=== PATIENT | female | born 1975 | race Caucasian/White ===

== ENCOUNTER 2017-10-25 12:39 | Emergency (ER) | payer BC ==
[~2017-10-25] VITALS: Ht 162.6 cm; Wt 63.5 kg
[~2017-10-25 12:39] MED LIST: ACETAMINOPHEN325 M1; BACTRIM DS TAB1 EACH PO; BENTYL 10 MG CA10 M1; CIPRO500 MG PO; CLEOCIN HCL300 MG PO; FLAGYL500 MG PO; IBUPROFEN 800800 M1 PO; IBUPROFEN200 M2; KEFLEX500 MG PO; NOHOMEMEDICATIONS; NORCO 5-325 TA1 EACH PO; PERCOCET 5-3251 EACH PO; PHENERGAN 25 MG25 M1 PO; TRAMADOL 50 MG50 MG PO
[2017-10-25 13:03] LABS: URINE BILIRUBIN NEGATIVE (Negative); URINE BLOOD 3+ (Negative); URINE CLARITY CLEAR; URINE COLOR YELLOW; URINE GLUCOSE-RANDOM NEGATIVE (Negative); URINE KETONES 1+ (Negative); URINE LEUKOCYTES-REFLEX NEGATIVE (Negative); URINE NITRITE-REFLEX NEGATIVE (Negative); URINE PROTEIN 1+ (Negative); URINE UROBILINOGEN 0.2 E.U./dl (0.2-1.0)
[2017-10-25 13:09] LABS: HEMATOCRIT 39.3 % (37.0-47.0); HEMOGLOBIN 13.7 gm/dL (12.0-15.0); MCH 34.8 pg (26.0-34.0); MCHC 34.8 g/dL (28.0-37.0); MCV 100.1 fL (80.0-100.0); MPV 7.7 fl. (7.2-11.1); NUCLEATED RBCS 0 /100WBC; PLATELET COUNT* 312 thou/uL (150-400); RBC 3.93 mil/uL (4.20-5.00); RDW-CV 12.9 % (10.5-14.5); WBC 16.2 thou/uL (4.0-11.0)
[2017-10-25 13:14] LABS: CREATININE 0.8 mg/dL (0.6-1.3); POTASSIUM 3.7 mmol/L (3.5-5.1)
[2017-10-25 13:18] LABS: ALBUMIN 3.7 g/dL (3.4-5.0); TOTAL BILIRUBIN 0.4 mg/dL (<0.1-1.0)
[2017-10-25 13:21] LABS: SQUAMOUS >10 Many /LPF (0-3)
[2017-10-25 13:22] LABS: URINE WBC-REFLEX None Seen /HPF (0-5)
[2017-10-25 13:23] LABS: CASTS None Seen /LPF (None Seen); CRYSTALS None Seen /LPF (None Seen)
[2017-10-25 13:49] LABS: ABSOLUTE BASOPHILS 0.2 thou/uL (0.0-0.2); ABSOLUTE EOSINOPHILS 0.2 thou/uL (0.0-0.7); ABSOLUTE LYMPHOCYTES 2.4 thou/uL (0.8-5.3); ABSOLUTE MONOCYTES 0.8 thou/uL (0.0-1.2); ABSOLUTE NEUTROPHILS 12.6 thou/uL (1.6-8.1); ATYPICAL LYMPHS 1 %; PLATELET ESTIMATE ADEQUATE
[2017-10-25] MEDS ORDERED: KEFLEX500 M1 PO (14:55)
[2017-10-25] MEDS ORDERED: IBUPROFEN 600600 M1 PO (14:55)
[2017-10-25] MEDS ORDERED: ULTRAM 50MG TAB50 MG PO (14:55)
[2017-10-25 15:16] VITALS: BP 120/82
[2017-10-26] MEDS ORDERED: PERCOCET 5-3251 EACH PO (01:57)
[2017-10-26] MEDS ORDERED: PHENERGAN12.5 M2 RECTAL (01:57)
== END 2017-10-25 15:17 | disposition home or self-care (01) ==
LOC: M.ERS 12:39
PROVIDERS: Physician Assistant
DX: N39.0 Urinary tract infection, site not specified (principal); Z88.1 Allergy status to other antibiotic agents; Z88.5 Allergy status to narcotic agent

== ENCOUNTER 2017-10-25 21:48 | Emergency (ER) | payer BC ==
[~2017-10-25] VITALS: Ht 162.6 cm; Wt 62.1 kg
[~2017-10-25 21:48] MED LIST changes: +IBUPROFEN 600600 M1 PO; +KEFLEX500 M1 PO; +ULTRAM 50MG TAB50 MG PO
[2017-10-25 22:57] LABS: ABSOLUTE EOSINOPHILS 0.1 thou/uL (0.0-0.7); ABSOLUTE LYMPHOCYTES 1.5 thou/uL (0.8-5.3); ABSOLUTE NEUTROPHILS 11.5 thou/uL (1.6-8.1); BASOPHILS 0.3 %; EOSINOPHILS 0.4 %; HEMATOCRIT 36.4 % (37.0-47.0); LYMPHOCYTES 10.6 %; MCH 35.2 pg (26.0-34.0); MCHC 35.6 g/dL (28.0-37.0); MCV 98.9 fL (80.0-100.0); MONOCYTES 6.9 %; MPV 7.9 fl. (7.2-11.1); NUCLEATED RBCS 0 /100WBC; PLATELET COUNT* 264 thou/uL (150-400); POLYS 81.8 %; RBC 3.68 mil/uL (4.20-5.00); RDW-CV 12.9 % (10.5-14.5)
[2017-10-25 23:05] LABS: CALCIUM 8.6 mg/dL (8.5-10.1); CREATININE 0.8 mg/dL (0.6-1.3); POTASSIUM 3.6 mmol/L (3.5-5.1)
[2017-10-25 23:10] LABS: ALBUMIN 3.4 g/dL (3.4-5.0); TOTAL BILIRUBIN 0.6 mg/dL (<0.1-1.0); TOTAL PROTEIN 6.7 g/dL (6.4-8.2)
[2017-10-26] MEDS ORDERED: PHENERGAN12.5 M2 RECTAL (01:57)
[2017-10-26] MEDS ORDERED: PERCOCET 5-3251 EACH PO (01:57)
[2017-10-26 02:21] VITALS: BP 129/94
== END 2017-10-26 02:31 | disposition home or self-care (01) ==
LOC: M.ERS 21:48
PROVIDERS: Personal Emergency Response Attendant
DX: R10.32 Left lower quadrant pain (principal); R11.2 Nausea with vomiting, unspecified; Z88.6 Allergy status to analgesic agent; Z88.5 Allergy status to narcotic agent; Z88.8 Allergy status to other drugs, medicaments and biological substances

== ENCOUNTER 2018-02-01 10:45 | Emergency (ER) | payer OTHER ==
[~2018-02-01] VITALS: Ht 162.6 cm; Wt 68.0 kg
[~2018-02-01 10:45] MED LIST changes: +PHENERGAN12.5 M2 RECTAL
[2018-02-01] MEDS ORDERED: AUGMENTIN 875-1 EACH PO (11:03)
[2018-02-01 12:08] VITALS: BP 147/85
== END 2018-02-01 12:10 | disposition home or self-care (01) ==
LOC: M.ERS 10:45
DX: S71.111A Laceration without foreign body, right thigh, initial encounter (principal); Z88.1 Allergy status to other antibiotic agents; Z88.5 Allergy status to narcotic agent; W54.0XXA Bitten by dog, initial encounter; Y93.89 Activity, other specified; Y92.89 Other specified places as the place of occurrence of the external cause; Y99.8 Other external cause status

== ENCOUNTER 2018-02-14 16:13 | Inpatient (IN) | payer OTHER ==
[~2018-02-14] VITALS: Ht 162.6 cm; Wt 68.4 kg
[~2018-02-14 16:13] MED LIST changes: +AUGMENTIN 875-1 EACH PO
[2018-02-14 16:19] VITALS: BP 133/84
[2018-02-14 16:52] LABS: HEMATOCRIT 40.4 % (37.0-47.0); MCHC 34.8 g/dL (28.0-37.0); MCV 100.6 fL (80.0-100.0); MPV 7.8 fl. (7.2-11.1); NUCLEATED RBCS 0 /100WBC; PLATELET COUNT* 242 thou/uL (150-400); RBC 4.01 mil/uL (4.20-5.00); RDW-CV 13.8 % (10.5-14.5)
[2018-02-14 16:56] LABS: CALCIUM 8.8 mg/dL (8.5-10.1); CREATININE 0.9 mg/dL (0.6-1.3); POTASSIUM 3.9 mmol/L (3.5-5.1)
[2018-02-14 17:10] LABS: ALBUMIN 3.5 g/dL (3.4-5.0); TOTAL BILIRUBIN 0.2 mg/dL (<0.1-1.0); TOTAL PROTEIN 6.7 g/dL (6.4-8.2)
[2018-02-14 17:35] LABS: ABSOLUTE LYMPHOCYTES 3.2 thou/uL (0.8-5.3); ABSOLUTE MONOCYTES 0.9 thou/uL (0.0-1.2); PLATELET ESTIMATE ADEQUATE
[2018-02-14 22:00] VITALS: BP 110/77
[2018-02-15 04:00] VITALS: BP 107/74
[2018-02-15 04:46] LABS: ABSOLUTE EOSINOPHILS 0.2 thou/uL (0.0-0.7); ABSOLUTE LYMPHOCYTES 2.3 thou/uL (0.8-5.3); ABSOLUTE MONOCYTES 0.7 thou/uL (0.0-1.2); ABSOLUTE NEUTROPHILS 5.3 thou/uL (1.6-8.1); BASOPHILS 0.5 %; EOSINOPHILS 2.6 %; HEMATOCRIT 41.2 % (37.0-47.0); HEMOGLOBIN 14.1 gm/dL (12.0-15.0); MCH 34.6 pg (26.0-34.0); MCHC 34.2 g/dL (28.0-37.0); MCV 101.2 fL (80.0-100.0); MONOCYTES 7.6 %; MPV 8.1 fl. (7.2-11.1); NUCLEATED RBCS 0 /100WBC; PLATELET COUNT* 225 thou/uL (150-400); POLYS 62.3 %; RBC 4.07 mil/uL (4.20-5.00); RDW-CV 13.4 % (10.5-14.5); WBC 8.6 thou/uL (4.0-11.0)
[2018-02-15 08:00] VITALS: BP 100/63
[2018-02-15 16:09] VITALS: BP 111/63
[2018-02-15 21:45] VITALS: BP 111/70
[2018-02-16 04:06] LABS: ABSOLUTE BASOPHILS 0.1 thou/uL (0.0-0.2); ABSOLUTE EOSINOPHILS 0.2 thou/uL (0.0-0.7); ABSOLUTE LYMPHOCYTES 2.3 thou/uL (0.8-5.3); ABSOLUTE MONOCYTES 0.6 thou/uL (0.0-1.2); ABSOLUTE NEUTROPHILS 4.5 thou/uL (1.6-8.1); EOSINOPHILS 2.3 %; HEMOGLOBIN 14.4 gm/dL (12.0-15.0); LYMPHOCYTES 30.4 %; MCHC 34.3 g/dL (28.0-37.0); MCV 102.2 fL (80.0-100.0); MONOCYTES 7.3 %; MPV 8.2 fl. (7.2-11.1); NUCLEATED RBCS 0 /100WBC; PLATELET COUNT* 223 thou/uL (150-400); RBC 4.11 mil/uL (4.20-5.00); RDW-CV 13.3 % (10.5-14.5); WBC 7.7 thou/uL (4.0-11.0)
[2018-02-16 08:30] VITALS: BP 103/46
[2018-02-16 09:34] VITALS: BP 103/46
[2018-02-16 09:42] VITALS: BP 103/46
[2018-02-16] MEDS ORDERED: AUGMENTIN 500-1 EACH PO (10:02)
[2018-02-16] MEDS ORDERED: VENELEX OINTMEN60 GM TOP (10:08)
[2018-02-16 11:00] VITALS: BP 103/46
== END 2018-02-16 11:30 | disposition home or self-care (01) | DRG 301 ==
LOC: M.ERS 16:13 → M.TBA-ER 20:52 → M.ORTHSURG 20:52 → M.2W 22:12 → M.ORTHSURG 02-15 12:43
PROVIDERS: Physician Assistant Surgical; ADMIT Surgery
DX: I96 Gangrene, not elsewhere classified (principal); G89.29 Other chronic pain; F17.210 Nicotine dependence, cigarettes, uncomplicated; Z90.49 Acquired absence of other specified parts of digestive tract; Z88.6 Allergy status to analgesic agent; Z79.2 Long term (current) use of antibiotics

== ENCOUNTER 2018-05-26 10:59 | Emergency (ER) | payer OTHER ==
[~2018-05-26] VITALS: Ht 162.6 cm; Wt 62.1 kg
[~2018-05-26 10:59] MED LIST changes: +AUGMENTIN 500-1 EACH PO; +VENELEX OINTMEN60 GM TOP
[2018-05-26] MEDS ORDERED: NEURONTIN600 MG PO (11:15)
[2018-05-26 11:20] LABS: URINE BILIRUBIN NEGATIVE (Negative); URINE BLOOD 3+ (Negative); URINE CLARITY CLEAR; URINE COLOR YELLOW; URINE GLUCOSE-RANDOM NEGATIVE (Negative); URINE KETONES 1+ (Negative); URINE LEUKOCYTES-REFLEX TRACE (Negative); URINE NITRITE-REFLEX NEGATIVE (Negative); URINE PROTEIN TRACE (Negative); URINE UROBILINOGEN 0.2 E.U./dl (0.2-1.0)
[2018-05-26 11:35] LABS: BACTERIA-REFLEX 1-9 Few /HPF (None Seen); CASTS None Seen /LPF (None Seen); CRYSTALS None Seen /LPF (None Seen); MUCUS 0-3 Light strn/LPF (None Seen); SQUAMOUS 4-10 Moderate /LPF (0-3); URINE WBC-REFLEX 6-15 Few /HPF (0-5)
[2018-05-26 11:43] LABS: CALCIUM 8.7 mg/dL (8.5-10.1); CREATININE 0.9 mg/dL (0.6-1.3); POTASSIUM 3.6 mmol/L (3.5-5.1)
[2018-05-26 11:48] LABS: ALBUMIN 3.8 g/dL (3.4-5.0); TOTAL BILIRUBIN 0.3 mg/dL (<0.1-1.0); TOTAL PROTEIN 6.8 g/dL (6.4-8.2)
[2018-05-26 11:51] LABS: ABSOLUTE EOSINOPHILS 0.1 thou/uL (0.0-0.7); ABSOLUTE LYMPHOCYTES 1.6 thou/uL (0.8-5.3); EOSINOPHILS 0.4 %; HEMOGLOBIN 13.9 gm/dL (12.0-15.0); MPV 7.8 fl. (7.2-11.1); NUCLEATED RBCS 0 /100WBC
[2018-05-26 11:53] LABS: ABSOLUTE BASOPHILS 0.1 thou/uL (0.0-0.2); ABSOLUTE MONOCYTES 0.8 thou/uL (0.0-1.2); ABSOLUTE NEUTROPHILS 12.3 thou/uL (1.6-8.1); BASOPHILS 0.5 %; LYMPHOCYTES 10.7 %; MCH 34.7 pg (26.0-34.0); MCHC 33.8 g/dL (28.0-37.0); MCV 102.5 fL (80.0-100.0); MONOCYTES 5.2 %; PLATELET COUNT* 219 thou/uL (150-400); POLYS 83.2 %; RDW-CV 13.2 % (10.5-14.5); WBC 14.8 thou/uL (4.0-11.0)
[2018-05-26] MEDS ORDERED: PHENAZOPYRIDIN200 M2 PO (12:25)
[2018-05-26] MEDS ORDERED: PHENERGAN 25 MG25 M1 PO (12:25)
[2018-05-26] MEDS ORDERED: BACTRIM DS TAB1 EACH PO (12:25)
[2018-05-26 12:59] VITALS: BP 117/85
== END 2018-05-26 13:00 | disposition home or self-care (01) ==
LOC: M.ERS 10:59
PROVIDERS: Emergency Medicine Emergency Medical Services
DX: N12 Tubulo-interstitial nephritis, not specified as acute or chronic (principal); Z88.6 Allergy status to analgesic agent; Z88.5 Allergy status to narcotic agent; Z88.8 Allergy status to other drugs, medicaments and biological substances; Z90.49 Acquired absence of other specified parts of digestive tract

== ENCOUNTER 2018-05-27 21:17 | Emergency (ER) | payer OTHER ==
[~2018-05-27] VITALS: Ht 162.6 cm; Wt 68.0 kg
[~2018-05-27 21:17] MED LIST changes: +NEURONTIN600 MG PO; +PHENAZOPYRIDIN200 M2 PO
[2018-05-27 22:04] LABS: URINE CLARITY CLEAR; URINE COLOR ORANGE
[2018-05-27 22:12] LABS: HEMATOCRIT 38.8 % (37.0-47.0); HEMOGLOBIN 13.3 gm/dL (12.0-15.0); MCH 34.2 pg (26.0-34.0); MCHC 34.2 g/dL (28.0-37.0); MCV 100.1 fL (80.0-100.0); MPV 7.7 fl. (7.2-11.1); NUCLEATED RBCS 0 /100WBC; PLATELET COUNT* 178 thou/uL (150-400); RBC 3.88 mil/uL (4.20-5.00); WBC 16.7 thou/uL (4.0-11.0)
[2018-05-27 22:20] LABS: CALCIUM 8.6 mg/dL (8.5-10.1); CREATININE 0.8 mg/dL (0.6-1.3); POTASSIUM 3.1 mmol/L (3.5-5.1)
[2018-05-27 22:25] LABS: ALBUMIN 3.2 g/dL (3.4-5.0); TOTAL BILIRUBIN 0.5 mg/dL (<0.1-1.0); TOTAL PROTEIN 6.5 g/dL (6.4-8.2)
[2018-05-27 22:33] LABS: URINE SPECIFIC GRAVITY 1.003 (1.005-1.030)
[2018-05-27 22:34] LABS: ACETEST (KETONE CONFIRMATORY) Moderate (Negative); ICTOTEST (BILI CONFIRMATORY) Negative (Negative); SSA (PROTEIN CONFIRMATORY) NEGATIVE (Negative); URINE GLUCOSE-RANDOM TRACE (Negative); URINE KETONES 2+ (Negative); URINE REDUCING SUBSTANCE NEGATIVE (Negative)
[2018-05-27 22:48] LABS: CASTS None Seen /LPF (None Seen); SQUAMOUS 0-3 Few /LPF (0-3)
[2018-05-27 22:49] LABS: BACTERIA 1-9 Few /HPF (None Seen); CRYSTALS None Seen /LPF (None Seen); URINE RBC 3-10 Few /HPF (0-2); URINE WBC 0-5 Rare /HPF (0-5)
[2018-05-27 23:58] LABS: ABSOLUTE LYMPHOCYTES 0.8 thou/uL (0.8-5.3); ABSOLUTE MONOCYTES 1.3 thou/uL (0.0-1.2); ABSOLUTE NEUTROPHILS 14.5 thou/uL (1.6-8.1)
[2018-05-27 23:59] LABS: PLATELET ESTIMATE ADEQUATE
[2018-05-28 00:20] VITALS: BP 113/71
== END 2018-05-28 00:21 | disposition home or self-care (01) ==
LOC: M.ERS 21:17
PROVIDERS: Nurse Practitioner Family
DX: N12 Tubulo-interstitial nephritis, not specified as acute or chronic (principal); F17.210 Nicotine dependence, cigarettes, uncomplicated; Z88.6 Allergy status to analgesic agent; Z88.5 Allergy status to narcotic agent; Z90.49 Acquired absence of other specified parts of digestive tract

== ENCOUNTER 2018-05-29 00:22 | Inpatient (IN) | payer OTHER ==
[~2018-05-29] VITALS: Ht 162.6 cm; Wt 68.9 kg
[2018-05-29 00:29] VITALS: BP 146/89
[2018-05-29 00:45] LABS: ABSOLUTE BASOPHILS 0.1 thou/uL (0.0-0.2); ABSOLUTE EOSINOPHILS 0.1 thou/uL (0.0-0.7); ABSOLUTE LYMPHOCYTES 1.1 thou/uL (0.8-5.3); ABSOLUTE MONOCYTES 1.1 thou/uL (0.0-1.2); ABSOLUTE NEUTROPHILS 13.8 thou/uL (1.6-8.1); BASOPHILS 0.4 %; EOSINOPHILS 0.7 %; HEMATOCRIT 39.5 % (37.0-47.0); HEMOGLOBIN 13.6 gm/dL (12.0-15.0); LYMPHOCYTES 6.6 %; MCH 34.2 pg (26.0-34.0); MCHC 34.4 g/dL (28.0-37.0); MCV 99.2 fL (80.0-100.0); MONOCYTES 6.5 %; MPV 7.8 fl. (7.2-11.1); NUCLEATED RBCS 0 /100WBC; PLATELET COUNT* 163 thou/uL (150-400); POLYS 85.8 %; RBC 3.98 mil/uL (4.20-5.00); RDW-CV 13.3 % (10.5-14.5); WBC 16.1 thou/uL (4.0-11.0)
[2018-05-29 00:52] LABS: CALCIUM 9.1 mg/dL (8.5-10.1); POTASSIUM 3.4 mmol/L (3.5-5.1)
[2018-05-29 00:57] LABS: TOTAL BILIRUBIN 0.5 mg/dL (<0.1-1.0); TOTAL PROTEIN 7.1 g/dL (6.4-8.2)
[2018-05-29 01:07] LABS: URINE CLARITY CLEAR; URINE COLOR AMBER
[2018-05-29 01:11] LABS: URINE SPECIFIC GRAVITY < 1.005 (1.005-1.030)
[2018-05-29 01:13] LABS: SSA (PROTEIN CONFIRMATORY) NEGATIVE (Negative); URINE GLUCOSE-RANDOM ND (Negative); URINE KETONES ND (Negative); URINE PROTEIN ND (Negative); URINE REDUCING SUBSTANCE NEGATIVE (Negative)
[2018-05-29 01:14] LABS: AMP/METHAMP Negative (Negative); BARBITURATES Negative (Negative); BENZODIAZEPINES Negative (Negative); COCAINE Negative (Negative); METHADONE Negative (Negative); OPIATES Negative (Negative); PCP Negative (Negative); THC POSITIVE (Negative)
[2018-05-29 01:15] LABS: ACETEST (KETONE CONFIRMATORY) Moderate (Negative); ICTOTEST (BILI CONFIRMATORY) Negative (Negative); URINE BILIRUBIN ND (Negative); URINE BLOOD ND (Negative); URINE LEUKOCYTES-REFLEX ND (Negative); URINE NITRITE-REFLEX ND (Negative); URINE UROBILINOGEN ND E.U./dl (0.2-1.0)
[2018-05-29 01:20] LABS: BACTERIA-REFLEX >30 Many /HPF (None Seen); CASTS None Seen /LPF (None Seen); CRYSTALS None Seen /LPF (None Seen); MUCUS 4-6 Moderate strn/LPF (None Seen); SQUAMOUS 4-10 Moderate /LPF (0-3); WBC CLUMPS Few (None Seen)
[2018-05-29 02:45] VITALS: BP 147/93
[2018-05-29 03:01] VITALS: BP 150/98
[2018-05-29 03:38] LABS: APTT 35.6 Seconds (25.0-31.3); PROTIME 10.6 Seconds (9.20-11.50)
--- NOTE | 2018-05-29 04:17 | NUR ---
42 Y/O FEMALE ADMITTED TO TELEMETRY WITH AN ADMITTING DX OF BACTREMIA, UTI, AND HYPONATREMIA. PT INITIALLY HAD A FWEVER OF 100.8 ORALLY WHEN ARRIVING TO FLOOR. PT GIVEN TYLENOL FOR FEVER ANF FENTANYL FOR PAIN WITH PARTIAL RELIEF. PT IS ON A CLD. PT REPORTS THAT SHE HAS HAD LOOSE STOOLS OVER THE PAST 2 DAYS AND HAS NOT EATEN MUCH EITHER. PT REPORTS THAT SHE HAS HAD THESE SYMPTOMS X 3 DAYS AND HAS MADE MULTIPLE ER VISITS BUT WAS UNABLE TO FIND TRANSPORTATION TO OBTAIN HER ABT. PT IS TRACING ST ON THE MONITOR. PT IS UP INDEPENDENT WITH STEADY GAOT TO BATHROOM. IVF AND IV ABT INFUSING ORDERED. PLEASE SEE ASSESSMENT FOR FURTHER DETAIL. CLWR
--- NOTE | 2018-05-29 06:10 | NUR ---
PT IS NOW RESTING COMFORTABLY AND REPORTS THAT PAIN IS CONTROLLED AND TOLERABLE AT THIS TIME. ELECTROLYTES REPLACED PER PROTOCOL. CLWR. PT DENIES ANY FURTHER NEEDS AT THIS TIME
[2018-05-29 11:04] VITALS: BP 132/83
--- NOTE | 2018-05-29 12:58 | NUR ---
ASSUMED PT CARE AT 0700 PT IS ALERT AND ORIENTED X 4 PT C/O PAIN MOANING GAVE PAIN MEDS REASSESSED PT WHO STILL HAVING PAIN TALKED WITH PHYSICIAN SINCE PT HAVING DIFFICULTY UNDERSTANDING PAIN MEDICATION DOSING AND FREQUENCY REEDUCATED PT ON THESE MULTIPLE INSTANCES PHYSICIAN SPOKE WITH PT ORDERED ANTIINFLAMATORY WITH PAIN MEDS PT NAUSEA GAVE REGLAN WITH PAIN MEDS THIS AM PT VOMITIED NOTIFIED PHYSICIAN WHO ORDERED ZOFRAN WHICH THIS NURSE GAVE WITH ANOTHER DOSE OF FENATNYL AROUND 1100 PT STATES BOTH MEDS HAVE HELPED PT ON CLEARS IF PT TOLERATED WILL ADVANCE DIET, PT IS UP WITH SBA PT IS RECEIVING NARCOTICS PT IS NOT A FALL RISK BED ALARM IS ON D/T PAIN MEDS, PT IS ST ON THE MONITOR, WILL CONTINUE TO MONITOR
--- NOTE | 2018-05-29 15:19 | NUR ---
SPOKE WITH PT. SHE WAS ALERT AND ORIENTED. SHE SAID SHE CAME TO ER AND GOT CALLED BACK WITH POSITIVE BLOOD CX. 2ND SET OF CX PENDING. SHE LIVES ALONE. HER CHILDREN ARE SUPPORTIVE WELL HER MOM. SHE IS NORMALLY INDEPENDENT. NO USE OF DME OR HX OF HH. THIS SUMMER SHE GOT BIT BY A DOG. SHE WAS FIRED DUE TO NOT BEING ABLE TO COME BACK TO WORK SOON ENOUGH. GAVE HER A PACKET FOR THE UNINSURED ALONG WITH A DRUG DISCOUNT CARD. SHE SAID SHE HAS A JOB AT [employer] BUT NO INSURANCE. CM WILL FOLLOW.
[2018-05-29 16:00] VITALS: BP 132/82
[2018-05-29 20:00] VITALS: BP 141/78
[2018-05-30] VITALS: BP 148/86
--- NOTE | 2018-05-30 02:09 | NUR ---
PT CARE ASSUMED AT 1930. SAT MAINATINED IN RA. ALERT AND ORINETED X4. CALL LIGHT WITHIN REACH AND FALL PRECAUTIONS MAINATINED. SR TO ST RUNNING IN TELE MONITOR. CALLS FREQUENTLY FOR PAIN MEDICATION. PT EDUCATED ABOUT PAIN MEDICATION DOSING AND FREQUENCY. CONTACT PRECAUTIONS MAINTAINED FOR ESBL. DENIES BURNING MICTURATION. WILL CONTINUE TO MONITOR.
[2018-05-30 04:00] VITALS: BP 131/85
--- NOTE | 2018-05-30 06:15 | NUR ---
PT ALERT AND ORIENTED. SAT MAINTAINED IN RA. PT HAVE DIFFICULTY UNDERSTANDING THE PAIN MEDICATION DOSING AND FREQUENCY. REDUCATED ABOUT THE PAIN MEDICATIONS. PT HAS NAUSEA, MEDICATION [employer] SERVICE REPRESENTATIVE PER EMAR. PT IS UP ADLIB. SR TO ST IN THE GRINDER SETUP OPERATOR. WILL CONTINUE TO MONITOR.
--- NOTE | 2018-05-30 07:30 | NUR ---
CHANGE OF SHIFT BEDSIDE REPORT GIVEN PATIENT SEEN AT BEDSIDE, IN BED RESTING ASSUMED PATIENT CARE
[2018-05-30 08:00] VITALS: BP 124/85
--- NOTE | 2018-05-30 08:23 | CON ---
[address] [address] CONSULTATION Name: ARIELLE RAMÍREZ Room: [address] IN .R.#: [id number] Admission: 05/29/18 Attend Phys: Migel Villasenor MD Discharge: Date of : 75 Report #: [id number] THIS REPORT FOR: //name// CC: FAM physician/PCP Migel Villasenor DATE OF SERVICE: 05/29/2018 INFECTIOUS DISEASE CONSULTATION ATTENDING PHYSICIAN: Migel Villasenor MD REASON FOR EVALUATION: Septicemia in a setting of pyelonephritis. HISTORY OF PRESENT ILLNESS: Chart reviewed, the patient examined. This is a 42-year-old without significant medical history who had onset of illness roughly 3 days prior to admission. She is seen in the ER twice, felt to have a likely complicated urinary tract infection. She was prescribed antibiotics including Bactrim as well as some Pyridium, Phenergan; however, blood culture was collected on the previous visit and was found to have a gram-negative urmila as well as a urine culture due to concerns about higher level of illness with septicemia. She was admitted at this point, she complains of significant right-sided pain. She generally feels poorly, has had some low-grade temperature elevations recorded as high as 100.8 with some tachycardia. She has not been significantly hemodynamically unstable. She was empirically placed on piperacillin and tazobactam. Imaging showed evidence of bilateral nephrolithiasis without hydronephrosis. She denies significant pulmonary-related complaints. Her appetite has been somewhat diminished. She is encephalopathic. ALLERGIES: MORPHINE, HYDROCODONE, ACETAMINOPHEN, ONDANSETRON. CURRENT MEDICATIONS: Include levofloxacin, p.r.n. analgesics, antiemetics, Zosyn. PAST MEDICAL HISTORY: Previous tubal ligation. She has had some completed pregnancies, previous cholecystectomy. SOCIAL HISTORY: Smokes a half a pack a day for the last 20 years, fairly frequent ethanol. FAMILY HISTORY: Noncontributory. REVIEW OF SYSTEMS: As above. PHYSICAL EXAMINATION: [place] [address] CONSULTATION Name: ARIELLE RAMÍREZ Room: [address] IN [facility].#: [id number] Admission: 05/29/18 Attend Phys: Migel Villasenor MD Discharge: Date of : 75 Report #: [id number] GENERAL: She appears ill, not overtly toxic. She is appropriate, in moderate distress. VITAL SIGNS: Temperature 98.9, pulse 69, respirations 17, blood pressure 132/83. SKIN: Warm, dry, no rashes. HEENT: Unremarkable. NECK: Supple. LUNGS: Otherwise clear, although somewhat diminished. HEART: Regular. I do not appreciate any murmur. ABDOMEN: Soft, some mild tenderness in the right lower quadrant, only minimal CVA tenderness. GENITOURINARY AND RECTAL: Deferred. LABORATORY DATA: She has had CT abdomen and pelvis as noted above, some stranding around the right renal site, perinephric inflammatory changes, bilateral nephrolithiasis. Lactic acid of 0.5. Chest x-ray, no acute process. Urine culture, gram-negative urmila. Electrolytes: Sodium 128, potassium 3.4, chloride 97, bicarb is 17, BUN and creatinine 9 and 1.0, anion gap of 14, glucose of 124. LFTs unremarkable. Albumin of 3, total protein 7.1, estimated GFR of 61. CBC: White count of 16.1, H and H 13.6 and 39.5, platelets 163. Blood cultures 1 out of 2 from the 30th, gram-negative rods. Urinalysis did show 6-15 white cells, 1-9 bacteria. ASSESSMENT AND PLAN: Septicemia as a complication of pyelonephritis. We will continue empiric antimicrobial therapy. We have early indications it is gram-negative, which is specifically what one would expect. There is no evidence of obstructive issue at this point based on imaging. We will likely be able to transition to oral antibiotics within the next 3-4 days and see how she does clinically. She is quite symptomatic at this point. We will have to monitor her oral intake. We will add incentive spirometry to help manage decrease in nosocomial-related infectious complications such as pneumonitis. <ELECTRONICALLY SIGNED> By: Dayton Nguyen MD 05/30/18 0823 [id number] Nguyen MD /nt
[2018-05-30 11:39] LABS: ABSOLUTE EOSINOPHILS 0.1 thou/uL (0.0-0.7); ABSOLUTE MONOCYTES 0.8 thou/uL (0.0-1.2); ABSOLUTE NEUTROPHILS 7.1 thou/uL (1.6-8.1); BASOPHILS 0.3 %; EOSINOPHILS 0.9 %; MCH 34.8 pg (26.0-34.0); MCHC 34.1 g/dL (28.0-37.0); MCV 101.9 fL (80.0-100.0); MONOCYTES 9.1 %; MPV 7.9 fl. (7.2-11.1); NUCLEATED RBCS 0 /100WBC; PLATELET COUNT* 160 thou/uL (150-400); POLYS 78.7 %; RBC 3.34 mil/uL (4.20-5.00); RDW-CV 13.1 % (10.5-14.5)
[2018-05-30 11:42] LABS: HEMOGLOBIN 11.6 gm/dL (12.0-15.0)
[2018-05-30 11:44] VITALS: BP 107/64
[2018-05-30 16:30] VITALS: BP 131/84
[2018-05-30 20:00] VITALS: BP 150/95
[2018-05-31] VITALS: BP 122/77
[2018-05-31 04:00] VITALS: BP 122/87
--- NOTE | 2018-05-31 04:05 | NUR ---
PT CARE ASSUMED AT 1930. SAT MAINTAINED IN RA. ALERT AND ORIENTED X 4. UP ADLIB. STATED PAIN, MEDICATION GIVEN PER EMAR. CALL LIGHT WITHIN REACH AND FALL PRECAUTIONS MAINTAINED. WILL CONTINUE TO MONITOR.
[2018-05-31 05:35] LABS: URINE BILIRUBIN NEGATIVE (Negative); URINE BLOOD 3+ (Negative); URINE CLARITY CLEAR; URINE COLOR YELLOW; URINE GLUCOSE-RANDOM NEGATIVE (Negative); URINE KETONES NEGATIVE (Negative); URINE LEUKOCYTES 1+ (Negative); URINE NITRITE NEGATIVE (Negative); URINE PROTEIN TRACE (Negative); URINE SPECIFIC GRAVITY 1.025 (1.005-1.030); URINE UROBILINOGEN 0.2 E.U./dl (0.2-1.0)
[2018-05-31 05:45] LABS: BACTERIA >30 Many /HPF (None Seen); CRYSTALS None Seen /LPF (None Seen); FINE GRANULAR CASTS 0-3 Few /LPF (None Seen); HYALINE CASTS 0-3 Few /LPF (None Seen); MUCUS 4-6 Moderate strn/LPF (None Seen); SQUAMOUS 0-3 Few /LPF (0-3); URINE RBC >20 Many /HPF (0-2); URINE WBC >25 Many /HPF (0-5); WBC CLUMPS Few (None Seen)
[2018-05-31 08:00] VITALS: BP 109/72
[2018-05-31 09:55] LABS: CREATININE 0.8 mg/dL (0.6-1.3); POTASSIUM 3.3 mmol/L (3.5-5.1)
--- NOTE | 2018-05-31 11:33 | NUR ---
VSS, ASSUMED CARE IN THE AM, ASSESSMENT PERFORMED AND CHARTED, FALL PRECAUTIONS IN PLACE AND CALL LIGHT IN REACH, PT IS A&O4 AND UP AD ANDREINA, SHE IS TRACING SR ON THE MONITOR AND STATES PAIN IN HER BACK, PT GOAL IS TO KEEP ISO PRECAUTIONS IN PLACE AND LOWER PAIN LEVEL, WILL FOLLOW WITH PLAN OF CARE.
[2018-05-31 12:02] VITALS: BP 120/85
[2018-05-31 15:36] VITALS: BP 125/53
--- NOTE | 2018-05-31 18:29 | NUR ---
VSS, PT REMAINS IN PAIN AND SHE IS TRACING SR/ST ON THE MONITOR, UP ADLIB ON RA AND IS A&O4 AND SEEMS TO HAVE AXIETY. HOURLY ROUNDS COMPLETED AND WILL FOLLOW WITH PLAN OF CARE.
[2018-05-31 20:00] VITALS: BP 102/66
[2018-06-01 00:34] VITALS: BP 123/79
[2018-06-01 03:35] VITALS: BP 106/69
--- NOTE | 2018-06-01 06:28 | NUR ---
ASSUMED PT CARE AT 1930. PT IS STEADY WHILE UP AD ANDREINA. PAIN MEDICATION GIVEN THROUGHOUT SHIFT. PAIN REMAINED CONSISTENTLY IN BACK/RT ABD AND RADIATED TO RIGHT UPPER RIB THIS AM. MYLANTA ALSO GIVEN FOR GAS PAIN. PT PT REPORTS HEATING PAD HELPFUL. HEATING PAD WAS REMOVED NEAR BEGINNING OF SHIFT WHILE PT WAS FEBRILE. PT HAS BEEN AFIBRILE REMAINDER OF SHIFT. PT DENIES UTI SYMPTOMS (OTHER THAN BACK PAIN) AND THAT SHE "WAS ABLE TO SLEEP FOR A FEW HOURS." PT ALSO REPORTS SHE "HOPES TO DISCHARGE TODAY."
[2018-06-01 08:00] VITALS: BP 136/86
[2018-06-01] MEDS ORDERED: OXYCODONE HCL 55 MG PO (11:21)
[2018-06-01] MEDS ORDERED: DOXYCYCLINE 10100 MG PO (11:26)
[2018-06-01] MEDS ORDERED: PROTONIX40 M1 PO (11:27)
[2018-06-01] MEDS ORDERED: TYLENOL EXTRA500 MG PO (11:35)
[2018-06-01] MEDS ORDERED: IBUPROFEN 200200 M1 PO (11:36)
[2018-06-01 11:43] VITALS: BP 106/69
--- NOTE | 2018-06-01 13:03 | NUR ---
vss, ASSUMED CARE IN THE AM, ASSESSMENT PERFORMED AND CHARTED, FALL PRECAUTIONS IN PLACE AND CALL LIGHT LIGHT IN REACH, PT IS A&O4 UP AD ANDREINA AND TRACINF SR/ST ON THE MONITOR, PT STATES PAIN IN HER BACK AND HER GOAL IS TO D/C TO HOME ON DAY OF CARE, I HAVE RECEIVED D/C ORDERS, FILLED OUT D/C PAPERS, TOOK OUT IV AND TOOK OFF TELE MONITOR PROVITED MEDICATION SCRIPTS, AND HOURLY ROUNDS COMPLETED,
== END 2018-06-01 13:25 | disposition home or self-care (01) | DRG 872 ==
LOC: M.ERS 00:22 → M.TBA-ER 01:59 → M.2W 01:59
PROVIDERS: Emergency Medicine; Internal Medicine; ADMIT Internal Medicine
DX: A41.89 Other specified sepsis (principal); N39.0 Urinary tract infection, site not specified; N17.9 Acute kidney failure, unspecified; N12 Tubulo-interstitial nephritis, not specified as acute or chronic; F17.210 Nicotine dependence, cigarettes, uncomplicated; Z90.49 Acquired absence of other specified parts of digestive tract; Z88.6 Allergy status to analgesic agent; Z88.8 Allergy status to other drugs, medicaments and biological substances

== ENCOUNTER 2018-08-14 10:00 | Emergency (ER) | payer OTHER ==
[~2018-08-14] VITALS: Ht 162.6 cm; Wt 69.0 kg
[~2018-08-14 10:00] MED LIST changes: +DOXYCYCLINE 10100 MG PO; +IBUPROFEN 200200 M1 PO; +OXYCODONE HCL 55 MG PO; +PROTONIX40 M1 PO; +TYLENOL EXTRA500 MG PO
[2018-08-14 10:50] LABS: URINE BLOOD 3+ (Negative); URINE CLARITY CLEAR; URINE COLOR YELLOW; URINE GLUCOSE-RANDOM NEGATIVE (Negative); URINE KETONES 1+ (Negative); URINE LEUKOCYTES-REFLEX NEGATIVE (Negative); URINE NITRITE-REFLEX NEGATIVE (Negative); URINE PROTEIN 1+ (Negative); URINE SPECIFIC GRAVITY >= 1.030 (1.005-1.030); URINE UROBILINOGEN 0.2 E.U./dl (0.2-1.0)
[2018-08-14 10:55] LABS: URINE BILIRUBIN 1+ (Negative)
[2018-08-14 10:57] LABS: ABSOLUTE BASOPHILS 0.1 thou/uL (0.0-0.2); ABSOLUTE EOSINOPHILS 0.1 thou/uL (0.0-0.7); ABSOLUTE NEUTROPHILS 12.9 thou/uL (1.6-8.1); BASOPHILS 0.8 %; EOSINOPHILS 0.3 %; HEMATOCRIT 41.1 % (37.0-47.0); LYMPHOCYTES 12.6 %; MCH 33.7 pg (26.0-34.0); MCV 99.1 fL (80.0-100.0); MPV 7.3 fl. (7.2-11.1); NUCLEATED RBCS 0 /100WBC; PLATELET COUNT* 279 thou/uL (150-400); POLYS 80.3 %; RBC 4.15 mil/uL (4.20-5.00); RDW-CV 14.4 % (10.5-14.5)
[2018-08-14 11:02] LABS: BACTERIA-REFLEX 1-9 Few /HPF (None Seen); CASTS None Seen /LPF (None Seen); CRYSTALS None Seen /LPF (None Seen); MUCUS None Seen strn/LPF (None Seen); SQUAMOUS 0-3 Few /LPF (0-3); URINE RBC 3-10 Few /HPF (0-2); URINE WBC-REFLEX 0-5 Rare /HPF (0-5)
[2018-08-14 11:04] LABS: ANION GAP 13 mmol/L (7-16); BUN 19 mg/dL (7-18); CHLORIDE 103 mmol/L (98-107); CO2 22 mmol/L (21-32); CREATININE 0.9 mg/dL (0.6-1.3); GLUCOSE 102 mg/dL (70-99); POTASSIUM 3.6 mmol/L (3.5-5.1); SODIUM 138 mmol/L (136-145)
[2018-08-14 11:12] LABS: ALBUMIN 4.2 g/dL (3.4-5.0); ALKALINE PHOSPHATASE 65 U/L (46-116); LIPASE 95 U/L (73-393); SGOT 27 U/L (15-37); SGPT 28 U/L (30-65); TOTAL BILIRUBIN 0.5 mg/dL (<0.1-1.0); TOTAL PROTEIN 7.5 g/dL (6.4-8.2); TROPONIN-I LEVEL <0.06 ng/mL (<0.06)
[2018-08-14] MEDS ORDERED: PROMS25 WY RECTAL (12:11)
[2018-08-14] MEDS ORDERED: PERCOCET PO (12:11)
[2018-08-14] MEDS ORDERED: ZOFRAN ODT4 MG PO (12:16)
[2018-08-14 12:33] VITALS: BP 125/79
== END 2018-08-14 12:34 | disposition home or self-care (01) ==
LOC: M.ERS 10:00
PROVIDERS: Physician Assistant
DX: N20.1 Calculus of ureter (principal); R11.2 Nausea with vomiting, unspecified; F17.210 Nicotine dependence, cigarettes, uncomplicated; Z88.5 Allergy status to narcotic agent; Z88.6 Allergy status to analgesic agent; Z88.8 Allergy status to other drugs, medicaments and biological substances; Z90.49 Acquired absence of other specified parts of digestive tract; Z98.890 Other specified postprocedural states

== ENCOUNTER 2018-08-16 13:47 | Inpatient (IN) | payer OTHER ==
[~2018-08-16] VITALS: Ht 162.6 cm; Wt 67.1 kg
[~2018-08-16 13:47] MED LIST changes: +PERCOCET PO; +PROMS25 WY RECTAL; +ZOFRAN ODT4 MG PO
[2018-08-16 14:08] VITALS: BP 132/79
[2018-08-16 14:18] LABS: URINE BILIRUBIN NEGATIVE (Negative); URINE BLOOD 2+ (Negative); URINE CLARITY CLEAR; URINE COLOR YELLOW; URINE GLUCOSE-RANDOM NEGATIVE (Negative); URINE KETONES 2+ (Negative); URINE LEUKOCYTES-REFLEX 1+ (Negative); URINE NITRITE-REFLEX NEGATIVE (Negative); URINE PROTEIN 2+ (Negative); URINE SPECIFIC GRAVITY 1.025 (1.005-1.030); URINE UROBILINOGEN 0.2 E.U./dl (0.2-1.0)
[2018-08-16 14:21] LABS: SQUAMOUS >10 Many /LPF (0-3); URINE WBC-REFLEX 6-15 Few /HPF (0-5)
[2018-08-16 14:22] LABS: BACTERIA-REFLEX >30 Many /HPF (None Seen); CASTS None Seen /LPF (None Seen); CRYSTALS None Seen /LPF (None Seen); MUCUS 0-3 Light strn/LPF (None Seen); URINE RBC 0-2 Rare /HPF (0-2)
[2018-08-16 14:55] LABS: HEMATOCRIT 36.1 % (37.0-47.0); HEMOGLOBIN 12.4 gm/dL (12.0-15.0); MCHC 34.3 g/dL (28.0-37.0); MCV 99.3 fL (80.0-100.0); MPV 7.4 fl. (7.2-11.1); NUCLEATED RBCS 0 /100WBC; RBC 3.63 mil/uL (4.20-5.00); RDW-CV 14.5 % (10.5-14.5); WBC 13.7 thou/uL (4.0-11.0)
[2018-08-16 14:58] LABS: PLATELET COUNT* 162 thou/uL (150-400)
[2018-08-16 15:04] LABS: CALCIUM 8.8 mg/dL (8.5-10.1); CREATININE 0.9 mg/dL (0.6-1.3); POTASSIUM 3.3 mmol/L (3.5-5.1)
[2018-08-16 15:08] LABS: TOTAL BILIRUBIN 0.5 mg/dL (<0.1-1.0); TOTAL PROTEIN 6.8 g/dL (6.4-8.2)
[2018-08-16 15:29] LABS: ABSOLUTE LYMPHOCYTES 0.8 thou/uL (0.8-5.3); ABSOLUTE MONOCYTES 0.5 thou/uL (0.0-1.2); ABSOLUTE NEUTROPHILS 12.3 thou/uL (1.6-8.1); PLATELET ESTIMATE ADEQUATE
[2018-08-16 16:01] VITALS: BP 116/71
[2018-08-16 16:15] VITALS: BP 119/81
--- NOTE | 2018-08-16 17:30 | NUR ---
PT ADMITTED TO UNIT FOR KIDNEY STONE. PT IS ALERT AND ORIENTED. PT I SON ROOM AIR. UP AD ANDREINA. STRAIN URINE. PT C/O PAIN IN BACK, MESSAGE SENT OT DOCTOR FOR PAIN MED ORDERS. PT HAS LT AC IV WITH NS AT 100. PT IS ON REGULAR DIET. UROLOGY CONSULTED, WILL SEE TOMORROW. FALL RISK PRECAUTIONS IN PLACE. WILL CONTINUE TO MONITOR.
[2018-08-16 20:00] VITALS: BP 115/62
[2018-08-17 03:53] LABS: ABSOLUTE LYMPHOCYTES 0.7 thou/uL (0.8-5.3); ABSOLUTE MONOCYTES 0.6 thou/uL (0.0-1.2); ABSOLUTE NEUTROPHILS 6.3 thou/uL (1.6-8.1); BASOPHILS 0.2 %; EOSINOPHILS 0.4 %; HEMATOCRIT 33.5 % (37.0-47.0); HEMOGLOBIN 11.6 gm/dL (12.0-15.0); LYMPHOCYTES 9.5 %; MCH 35.1 pg (26.0-34.0); MCHC 34.8 g/dL (28.0-37.0); MCV 101.1 fL (80.0-100.0); MONOCYTES 7.8 %; NUCLEATED RBCS 0 /100WBC; PLATELET COUNT* 132 thou/uL (150-400); POLYS 82.1 %; RBC 3.31 mil/uL (4.20-5.00); RDW-CV 14.5 % (10.5-14.5); WBC 7.7 thou/uL (4.0-11.0)
[2018-08-17 04:00] LABS: CREATININE 0.9 mg/dL (0.6-1.3)
--- NOTE | 2018-08-17 05:02 | NUR ---
PT REMAINED A&Ox4 THROUGHOUT SHIFT. VITALS STABLE. IV IN L AC PATENT, INFUSING. PAIN CONTROLED WITH TORADOL AND FENTANYL. COMPLAINED OF INCREASED NAUSEA AFTER 3 HOURS OF RECIEVING ZOFRAN THAT WAS Q6H, COMPAZINE ORDERED. PT SHOWERED AT 0345, STATED IT HELPS WITH HER PAIN. PT UP AD ANDREINA. HOURLY ROUNDING COMPLETE. CALL LIGHT WITHIN REACH. WILL CONTINUE TO MONITOR.
[2018-08-17 08:07] VITALS: BP 121/58
[2018-08-17 16:05] VITALS: BP 126/48
--- NOTE | 2018-08-17 16:27 | NUR ---
PATIENT REMAINS ALERT AND ORIENTED. PAIN CONTROLLED WITH TORADOL AND PERCOCET. UP AD ANDREINA. SHOWERED TODAY. IVF INFUSING ORDERED. NEW IV PLACED RIGHT FOREARM. TOLERATING MEALS. WILL BE NPO AFTER MINDNIGHT FOR CYSTO WITH STENT PLACEMENT TOMORROW. FAMILY VISITED THROUGHOUT THE DAY. CALL LIGHT WITHIN REACH. WILL CONTINUE TO MONITOR.
--- NOTE | 2018-08-17 18:37 | NUR ---
PATIENT WITH TEMP 102.[address] STOVALL NOTIFIED ORDERS FOR ZOSYN AND TYLENOL RECEIVED. WILL CONTINUE TO MONITOR.
[2018-08-17 20:00] VITALS: BP 125/88
--- NOTE | 2018-08-18 04:49 | NUR ---
PT REMAINED A&Ox4 THROUGHOUT SHIFT. UP AD ANDREINA. VITALS STABLE. IV R FA PATENT, INFUSING. ZOSIN STARTED. NPO AFTER MIDNIGHT FOR STENT PLACEMENT. PAIN CONTROLLED WITH PERCOCET AND TORADOL. URINE STRAINED NO STONES FOUND. PT SLEPT THROUGH THE NIGHT. HOURLY ROUNDING COMPLETE. CALL LIGHT WITHIN REACH. AT BEDSIDE. WILL CONTINUE TO MONITOR.
[2018-08-18 06:17] VITALS: BP 125/88
[2018-08-18 07:10] VITALS: BP 121/62
--- NOTE | 2018-08-18 07:10 | NUR ---
PATIENT LEFT FOR SURGERY AT THIS TIME. ALERT AND ORIENTED. VSS. IV ZOSYN INFUSING AND WILL FINISH IN PRE OP. REASSESSMENT COMPLETED.
--- NOTE | 2018-08-18 09:40 | NUR ---
PATIENT RETURNED FROM SURGERY AT THIS TIME. ALERT AND ORIENTED. PERCOCET GIVEN FOR PAIN. SNACK PROVIDED. ASSISTED TO BATHROOM TO VOID. VOIDED WITHOUT DIFFICULTY. SCD'S IN PLACE. VSS. LOW GRADE TEMP PRE OP. IVF INFUSING ORDERED. PATIENT DENIES FURTHER NEEDS. CALL LIGHT WITHIN REACH. WILL CONTINUE TO MONITOR.
--- NOTE | 2018-08-18 15:05 | NUR ---
SPOKE TO THE PATIENT TO DISCUSS HER HOME SITUATION, DISCHARGE PLANNING, AND TO INFORM OF THE ROLE OF CM. PATIENT ALERT, ORIENTED, ACTIVE AND WORKS. PATIENT INFROMS THAT SHE DOES NOT HAVE INSURANCE AND IS CONCERNED ABOUT POSSIBLY NEEDING SURGERY AT D/C, AND ABOUT THE COST OF MEDICATIONS THAT SHE MAY DISCHARGE WITH. D/C WET MILLING WHEEL OPERATOR PROVIDED PATIENT WITH A COMMUNITY RESOURCE LIST AND A PRESCRIPTION ASSISTANCE CARD, AND INFROMED HER TO CALL BILLING AT D/C TO ASK FOR ASSISTANCE WITH MEDICAL BILLS AT D/C. D/C WET MILLING WHEEL OPERATOR ALSO INFORMED THE PATIENT THAT CM WILL INFORM THE RN AND PHYSICIAN ABOUT THE NEED TO ASSIST WITH PRESCRIBING AFFORDABLE MEDICATIONS AT D/C. CM WILL REMAIN AVIALABLE TO ASSIST AND FOLLOW NEEDED.
[2018-08-18 16:00] VITALS: BP 139/72
--- NOTE | 2018-08-18 16:31 | NUR ---
PATIENT REMAINS ALERT AND ORIENTED. PAIN CONTROLLED WITH PERCOCET,LEVSIN, AND MIRABEGRON FOR SPASMS. UP AD ANDREINA. BM 08/17/18. TOLERATING MEALS. VOIDNG PER TOILET. STRAINING URINE. NEW IV STARTED IN RIGHT FOREARM. IVF INFUSING ORDERED. VSS, AFEBRILE THIS AFTERNOON. CALL LIGHT WITHIN REACH. WILL CONTINUE TO MONITOR.
--- NOTE | 2018-08-18 16:54 | NUR ---
BLADDER SCANNED PATIENT. PVR 13MLS.
[2018-08-18 19:30] VITALS: BP 149/82
--- NOTE | 2018-08-18 23:08 | NUR ---
RECIEVED REPORT AND ASSUMED CARE OF PT AT 1930. PT POST CYSTOSCOPY WITH STENT PLACEMENT TO RIGHT URETER. PT REPORTS RIGHT LOWER ABDOMINAL PAIN. PT GIVEN PRN OXYCODONE AND COMPAZINE WITH GOOD RELIEF OF PAIN. PT UP TO RESTROOM VOIDING BLOOD TINGED URINE. URINE STRAINED PER ORDERS, NO STONE SEEN. CALL LIGHT IN REACH, PT USING APPROPRIATELY.
[2018-08-19 08:10] VITALS: BP 136/62
[2018-08-19 11:11] LABS: URINE BILIRUBIN NEGATIVE (Negative); URINE BLOOD 3+ (Negative); URINE CLARITY CLEAR; URINE COLOR YELLOW; URINE GLUCOSE-RANDOM NEGATIVE (Negative); URINE KETONES NEGATIVE (Negative); URINE LEUKOCYTES-REFLEX TRACE (Negative); URINE NITRITE-REFLEX NEGATIVE (Negative); URINE PROTEIN TRACE (Negative); URINE UROBILINOGEN 0.2 E.U./dl (0.2-1.0)
[2018-08-19 11:19] LABS: BACTERIA-REFLEX 1-9 Few /HPF (None Seen); CASTS None Seen /LPF (None Seen); CRYSTALS None Seen /LPF (None Seen); MUCUS None Seen strn/LPF (None Seen); SQUAMOUS 0-3 Few /LPF (0-3); URINE WBC-REFLEX 0-5 Rare /HPF (0-5)
[2018-08-19 15:26] VITALS: BP 121/66
--- NOTE | 2018-08-19 16:04 | NUR ---
PATIENT REMAINS ALERT AND ORIENTED. PAIN SLIGHTLY BETTER THIS AFTERNOON. IVF STOPPED AND PYRIDIUM STARTED. NEW UA SENT. URINE REMAINS BLOOD TINGED. STRAINING FOR STONES. UP AD ANDREINA. SHOWERED TODAY. TOLERATING MEALS. CALL LIGHT WITHIN REACH. WILL CONTINUE TO MONITOR.
[2018-08-19 21:30] VITALS: BP 125/72
--- NOTE | 2018-08-19 22:45 | NUR ---
INITAL ASSESMENT COMPLETED AT 1930. PT REPORTED RIGHT FLANK PAIN ASSOCIATED WITH STENT AND OR KIDNEY STONE. PT GIVEN PRN MEDS, SEE EMAR. PT'S IV IN RIGHT FOREARM INFILTRATED. IV DISCONTINUED. ATTEMPTS TO RESTART UNSUCCESSFULL.
[2018-08-20 04:24] LABS: HEMATOCRIT 31.6 % (37.0-47.0); HEMOGLOBIN 10.8 gm/dL (12.0-15.0); MCH 34.2 pg (26.0-34.0); MCHC 34.1 g/dL (28.0-37.0); MCV 100.1 fL (80.0-100.0); MPV 7.6 fl. (7.2-11.1); RBC 3.16 mil/uL (4.20-5.00); RDW-CV 14.3 % (10.5-14.5); WBC 8.9 thou/uL (4.0-11.0)
[2018-08-20 04:32] LABS: CALCIUM 8.6 mg/dL (8.5-10.1); CREATININE 0.8 mg/dL (0.6-1.3); MAGNESIUM 1.8 mg/dL (1.8-2.4); POTASSIUM 3.2 mmol/L (3.5-5.1)
[2018-08-20 08:41] VITALS: BP 136/64
--- NOTE | 2018-08-20 11:08 | NUR ---
CONSULTED TO PLACE MIDLINE FOR ATB AND FLUIDS. RIGHT UPPER ARM ASSESSED WITH OUTRASOUND AND BASILIC VEIN IDENTIFIED AND NOTED TO BE PATENT. POWER INJECTABLE MIDLINE TRIM TO 14CM AND ADVANCED 13CM PLACED PER HOSPITAL POLICY. GOOD BRISK BLOOD RETURN NOTED AND FLUSHED WITH EASE. PT TOLERATED WELL.
--- NOTE | 2018-08-20 16:05 | NUR ---
PATIENT REMAINS ALERT AND ORIENTED. PAIN CONTROLLED WITH SCHEDULED AND PRN MEDICATION. NAUSEA MEDS X1. EATING MEALS. UP AD ANDREINA. SHOWERED THIS AM. MIDLINE PLACED BY INFUSION THIS AM DUE TO POOR PERIPHERAL ACCESS. BM YESTERDAY. STRAINING ALL URINE. AWAITING URINE CULTURE RESULTS. IV ABX INFUSED ORDERED. ID CONSULTED. ISOLATION FOR HISTORY OF ESBL. CALL LIGHT WITHIN REACH. WILL CONTINUE TO MONITOR.
[2018-08-20 16:34] VITALS: BP 110/71
[2018-08-20 20:00] VITALS: BP 118/58
[2018-08-20 21:07] LABS: POTASSIUM 4.3 mmol/L (3.5-5.1)
--- NOTE | 2018-08-21 04:53 | NUR ---
ASSUMED CARE OF PT AT 1900 PT ALERT AND ORIENTED X4 VS AND ASSESSMENT STABLE. PT HAD PAIN MEDS TWICE OVERNIGHT THEN SLEPT IN BETWEEN. WILL CONTINUE PLAN OF CARE.
[2018-08-21 05:01] LABS: HEMATOCRIT 33.7 % (37.0-47.0); HEMOGLOBIN 11.6 gm/dL (12.0-15.0); MCH 34.2 pg (26.0-34.0); MCHC 34.3 g/dL (28.0-37.0); MCV 99.5 fL (80.0-100.0); MPV 7.3 fl. (7.2-11.1); RBC 3.39 mil/uL (4.20-5.00); RDW-CV 14.5 % (10.5-14.5); WBC 9.9 thou/uL (4.0-11.0)
[2018-08-21 05:17] LABS: CALCIUM 9.1 mg/dL (8.5-10.1); CREATININE 0.8 mg/dL (0.6-1.3); POTASSIUM 4.1 mmol/L (3.5-5.1)
[2018-08-21] MEDS ORDERED: PERCOCET PO (08:32)
[2018-08-21] MEDS ORDERED: ZOFRAN ODT4 MG PO (08:32)
[2018-08-21] MEDS ORDERED: MIRALAX17 GM PO (08:32)
[2018-08-21] MEDS ORDERED: PHENAZOPYRIDIN100 M1 PO (08:32)
[2018-08-21] MEDS ORDERED: FLOMAX0.4 MG PO (08:32)
[2018-08-21] MEDS ORDERED: LEVSIN0.125 MG SUBLING (08:32)
[2018-08-21] MEDS ORDERED: MYRBETRIQ25 MG PO (08:32)
[2018-08-21 09:19] VITALS: BP 124/78
--- NOTE | 2018-08-21 13:09 | CON ---
[address] [address] CONSULTATION Name: ARIELLE RAMÍREZ Room: [address] IN ..#: [id number] Admission: 08/16/18 Attend Phys: Hailey Suh Discharge: Date of : 75 Report #: [id number] THIS REPORT FOR: //name// CC: YASH physician/PCP Mela Buenrostro DATE OF SERVICE: 08/20/2018 ATTENDING PHYSICIAN: Dr. Buenrostro. REASON FOR EVALUATION: Pyelonephritis in the setting of obstructive uropathy. The patient with known history of complicated urinary tract infections including septicemia. HISTORY OF PRESENT ILLNESS: Chart reviewed, the patient examined. This 43-year-old again with known history of recurrent genitourinary tract infections has been hospitalized, last fall had a Klebsiella pneumoniae septicemia and pyelonephritis. She presented with a 3-4 day history of right-sided flank pain, which radiates to the right inguinal site, associated with emesis. She had low-grade temperature elevations. Underwent evaluation and found to have some hydronephrosis, bilateral nephrolithiasis, partially obstructing 3-mm calculus at the right UVJ junction, underwent operative procedure with cystoscopy, right RPG stenting. Outpatient culture does have growth of Klebsiella pneumoniae awaiting susceptibilities, started empirically on cefepime. She denies significant pulmonary complaints. Her appetite has improved. She has not had recent pulmonary-related complaints. ALLERGIES: MORE TYPICAL OF ADVERSE DRUG EFFECTS TO MORPHINE WITH NAUSEA, HYDROCODONE WITH NAUSEA, ACETAMINOPHEN WITH NAUSEA. CURRENT MEDICATIONS: Include ketorolac, phenazopyridine, mirabegron, cefepime, and tamsulosin. PAST MEDICAL HISTORY: As described above, history of renal lithiasis, recurrent urinary tract infections, previous tubal ligation, cholecystectomy. SOCIAL HISTORY: Smokes cigarettes, fairly frequent ethanol use, no illicit drug use. FAMILY HISTORY: Noncontributory. REVIEW OF SYSTEMS: Ten-point review of systems otherwise unremarkable with exception noted above in history of present illness. PHYSICAL EXAMINATION: GENERAL: She is alert, cooperative. She is [id number] [address] CONSULTATION Name: ARIELLE RAMÍREZ Room: [address] IN [facility].#: [id number] Admission: 08/16/18 Attend Phys: Hailey Suh Discharge: Date of : 75 Report #: [id number] secondary to the right-sided and flank pain, appears to be reasonably well nourished. VITAL SIGNS: Temperature 98.0, pulse 104, respirations 15, blood pressure 110/71. SKIN: Warm, dry, no rashes. HEENT: Extraocular muscles intact. Normocephalic. Oropharynx without lesion. NECK: Supple. LUNGS: Clear to auscultation. HEART: Regular, tachycardic. No appreciated murmur. ABDOMEN: Soft. There is mild percussible tenderness on the right lower quadrant and the flank area. There are no overt peritoneal signs. EXTREMITIES: Lower extremities without edema or cyanosis. GENITOURINARY: Deferred. RECTAL: Deferred. LABORATORY DATA: CBC: White count of 8.9, H and H 10.8 and 31.6, platelets of 216. Electrolytes: Sodium 140, potassium 3.2, chloride 105, bicarb 25, BUN and creatinine 15 and 0.8, estimated GFR of 78. Urine culture in progress. Urinalysis only showed 0-5 white cells. Outpatient culture with Klebsiella pneumoniae, awaiting susceptibilities. Blood cultures sterile thus far. ASSESSMENT: Complicated urinary tract infection, no evidence of septicemia at this point, but likely has pyelonephritis in the setting of obstructive uropathy, has undergone decompressing procedure, to this point has stent in place. We will continue empiric therapy with cefepime. Based on previous susceptibilities this is fairly moderate resistant Klebsiella last fall, likely plan a 10-14 day course of treatment. We will monitor expectantly. Add incentive spirometry. <ELECTRONICALLY SIGNED> By: Dayton Nguyen MD 08/21/18 1309 [id number] Nguyen MD /nt
[2018-08-21 15:02] VITALS: BP 124/78
[2018-08-21 16:00] VITALS: BP 117/77
--- NOTE | 2018-08-21 16:27 | NUR ---
D/C EXCAVATION LABORER INFORMED THAT THE PATIENT WOULD NEED I.V. ABT'S AT D/C DAILY FOR 10 DAYS. PATIENT DOES NOT HAVE INSURANCE. CM TO ATTEMPT ARRANGING PATIENT WITH INFUSIONS IN THE OUTPATIENT CLINIC, BUT MUST GET APPROVAL FROM [facility]. D/C EXCAVATION LABORER INFORMED DR RICKS AND DR MAHARAJ OF THIS INFO. DR MAHARAJ INFORMS THAT PATIENT'S D/C WILL BE ON-HOLD WHILE ABT IS ARRANGED. D/C EXCAVATION LABORER INFORMED THE PATIENT AND RN IN-CHARGE OF THE PATIENT OF THIS INFO AND BOTH ARE IN AGREEMENT. D/C EXCAVATION LABORER ALSO SPOKE TO JAKE WITH [employer] AND SHE INFORMS THAT SHE HAD VISITED WITH THE PATIENT YESTERDAY, BUT WILL COME TO THE HOSPITAL TOMORROW TO REASSESS AND GATHER MORE INFO. CM WILL REMAIN AVIALABLE TO ASSIST AND FOLLOW NEEDED.
--- NOTE | 2018-08-21 17:09 | NUR ---
PT REMAINED ALERT AND ORIENTED THIS SHIFT. PT CULTURE AND SENSITIVITY REPORT CAME BACK, IV ANTIBIOTICS ORDERED FOR 10 DAYS. FIRST DOSE GIVEN TODAY. ONCE OUTPATIENT INFUSIONS SET UP, PT CAN BE DISCHARGED. FALL RISK PRECAUTIONS IN PLACE. HOURLY ROUNDING COMPLETED. WILL CONTINUE TO MONITOR.
[2018-08-21 20:00] VITALS: BP 129/85
--- NOTE | 2018-08-22 04:27 | NUR ---
PT REMAINED A&Ox4 THROUGHOUT SHIFT. VITALS STABLE. PICC IN R ARM PATENT, SL. PAIN CONTROLLED WITH PERCOCET. UP AD ANDREINA. PT AT BEDSIDE DURING SHIFT. PLANS ON DISCHARGING TODAY. HOURLY ROUNDING COMPLETE. CALL LIGHT WITHIN REACH. WILL CONTINUE TO MONITOR.
[2018-08-22 08:00] VITALS: BP 119/77
--- NOTE | 2018-08-22 08:00 | NUR ---
OUTPATIENT IV ANTIBIOTIC INFUSION APPROVED BY [facility]. PHARMACY WORKING WITH DRUG THERAPY TECHNICIAN FOR REPLACMENT DRUGS TO BE USED FOR THE INFUSION, PT CAN BE DISCHARGED TODAY AND START OUTPT INFUSION TODAY REPLACEMENT DRUG IS ARRANGED. NURSING TO ARRANGE OUTPATIENT INFUSION SERVICES.
[2018-08-22 10:21] VITALS: BP 124/78
[2018-08-22 11:01] VITALS: BP 124/78
[2018-08-22 12:17] VITALS: BP 124/78
--- NOTE | 2018-08-22 12:18 | NUR ---
PT ALERT AND ORIENTED X 4. DENIES PAIN THIS AM. RECEIVED IV NAUSEA MEDICATION. PICC LINE IN RIGHT UPPER EXTRMITY PATENT. NOT USING HEATING PAD. SPOKE WITH PHARMACY ABOUT IV MEDICATION. PT TO RECEIVED ANTIBIOTIC IN OUTPATIENT INFUSION. ARRANGEMENTS MADE FOR OUTPATIENT INFUSION DIRECTLY AFTER DISCHARGE. PT GIVEN PRESCTIPTIONS AND DISCHARGE INSTRUCTIONS. PT LEFT PER AMBULATION TO LEAVE UNIT WITH BY PRIVATE CAR @ [id number].
--- NOTE | 2018-08-22 14:27 | OP ---
[facility] [address] [place] [address] OPERATIVE REPORT Name: ARIELLE RAMÍREZ Room: [address] IN .R.#: [id number] Admission: 08/16/18 Attend Phys: Hailey Suh Discharge: 08/22/18 Date of : 75 Report #: [id number] THIS REPORT FOR: //name// CC: [facility] physician/PCP Mela Buenrostro PREOPERATIVE DIAGNOSES: Right ureteral calculus, flank pain, possible urinary tract infection. POSTOPERATIVE DIAGNOSES: Right ureteral calculus, flank pain, possible urinary tract infection. PROCEDURE: Cystoscopy, right retrograde pyelogram, right ureteral stent placement. SURGEON: Navid Pa M.D. ANESTHESIA: General. ESTIMATED BLOOD LOSS: None. DRAINS: 6 x 28 right ureteral stent. SPECIMENS: None. COMPLICATIONS: None. INDICATIONS: This is a 43-year-old female, admitted with a right distal ureteral calculus, flank pain, possible UTI with fever at presentation. Alternatives for management were discussed, and she has elected to undergo cystoscopy with right ureteral stent placement and right retrograde pyelogram. We discussed the need for deferral of definitive stone management until UTI is either ruled out or eradicated. We also discussed risks of the procedure including but not limited to bleeding, infection, anesthesia, cardiopulmonary and vascular events, injury to urethra, bladder, ureter, surrounding structures, possible inability to bypass obstruction, necessitating nephrostomy, need for further procedures, possible development of strictures, stent discomfort. We also discussed the importance of timely followup regarding any stent left in place and the reasoning for that. She voices clear understanding well and wants to proceed. DESCRIPTION OF PROCEDURE: The patient was on perioperative IV antibiotics. After induction of general anesthesia, she was positioned, prepped and draped in the lithotomy position. A timeout procedure was performed. Cystourethroscopy was performed. The urethra and bladder are normal on systematic examination. The ureteral orifices are orthotopic. No blood is seen from either. A 5-Kittitian ureteral catheter was used to perform a retrograde pyelogram [place] [address] OPERATIVE REPORT Name: ARIELLE RAMÍREZ Room: [address]#: [id number] Admission: 08/16/18 Attend Phys: Hailey Suh Discharge: 08/22/18 Date of : 75 Report #: [id number] interrogation over the pelvis does not reveal any definite stones. Retrograde pyelogram reveals a filling defect projecting near the upper aspect of the sacroiliac joint, likely representing retrograde migration of the stone due to instrumentation and contrast administration. Contrast passes the filling defect and outlines a mildly dilated renal pelvis. The ureter is otherwise unremarkable, though somewhat dilated. I elected to place a stent. The catheter was used to advance a sensor wire into the right renal pelvis with fluoroscopic guidance. Catheter was removed leaving the wire in place. A 6 x 28 right ureteral stent was advanced over the wire with good position confirmed in the renal pelvis fluoroscopically and in the bladder visually. Drainage of clear fluid was noted from the stent. The bladder was emptied and the scope was removed. Lidocaine jelly was given per urethra. The patient tolerated the procedure well. He was taken to the recovery room in stable condition. Plan will be for stone manipulation in approximately 2 weeks to allow time for an adequate course of antibiotic therapy pending her culture results. <ELECTRONICALLY SIGNED> By: Navid Pa MD 08/22/18 1427 0845 [id number] Pa MD /nt
== END 2018-08-22 11:45 | disposition home health service (06) | DRG 661 ==
LOC: M.ERS 13:47 → M.ORTHSURG 15:40 → M.TBA-ER 15:40 → M.ORTHSURG 15:40 → M.ERS 16:04 → M.ORTHSURG 16:13
PROVIDERS: Internal Medicine; Nurse Practitioner Family; Urology; ADMIT Internal Medicine
PROC: BT1D1ZZ Fluoroscopy of Right Kidney, Ureter and Bladder using Low Osmolar Contrast (ICD-10-PCS; principal; 2018-08-18)
PROC: 0T768DZ Dilation of Right Ureter with Intraluminal Device, Via Natural or Artificial Opening Endoscopic (ICD-10-PCS; principal; 2018-08-18)
PROC: B54MZZA Ultrasonography of Right Upper Extremity Veins, Guidance (ICD-10-PCS; 2018-08-20)
PROC: 05HY33Z Insertion of Infusion Device into Upper Vein, Percutaneous Approach (ICD-10-PCS; 2018-08-20)
DX: N13.6 Pyonephrosis (principal); D72.829 Elevated white blood cell count, unspecified; F17.210 Nicotine dependence, cigarettes, uncomplicated; B96.1 Klebsiella pneumoniae [K. pneumoniae] as the cause of diseases classified elsewhere; Z16.24 Resistance to multiple antibiotics; Z90.49 Acquired absence of other specified parts of digestive tract; Z88.6 Allergy status to analgesic agent; Z88.8 Allergy status to other drugs, medicaments and biological substances; Z79.899 Other long term (current) drug therapy; B96.20 Unspecified Escherichia coli [E. coli] as the cause of diseases classified elsewhere

== ENCOUNTER → 2018-08-22 | Outpatient (CLI) | payer OTHER ==
[~2018-08-22] MED LIST changes: +FLOMAX0.4 MG PO; +INVANZ1 GM IV; +LEVSIN0.125 MG SUBLING; +MIRALAX17 GM PO; +MYRBETRIQ25 MG PO; +PHENAZOPYRIDIN100 M1 PO
== END ==
LOC: M.INFUS 11:51
DX: N39.0 Urinary tract infection, site not specified (principal)

== ENCOUNTER → 2018-08-23 | Outpatient (CLI) | payer OTHER ==
[~2018-08-23] MED LIST changes: +MACROBID 100 M100 M1 PO; +NAPROSYN500 MG PO; +PYRIDIUM200 MG PO; +ZOFRAN4 MG PO
== END ==
LOC: M.INFUS 08:00
DX: N39.0 Urinary tract infection, site not specified (principal); N21.0 Calculus in bladder; D72.820 Lymphocytosis (symptomatic)

== ENCOUNTER → 2018-08-24 | Outpatient (CLI) | payer OTHER ==
[~2018-08-24] MED LIST changes: -MACROBID 100 M100 M1 PO; -NAPROSYN500 MG PO; -PYRIDIUM200 MG PO; -ZOFRAN4 MG PO
== END ==
LOC: M.INFUS 08:00
DX: N39.0 Urinary tract infection, site not specified (principal)

== ENCOUNTER → 2018-08-25 | Outpatient (CLI) | payer OTHER | LOC: M.INFUS 06:20 | DX: N39.0 Urinary tract infection, site not specified (principal) ==

== ENCOUNTER → 2018-08-26 | Outpatient (CLI) | payer OTHER | LOC: M.INFUS 08:11 | DX: N39.0 Urinary tract infection, site not specified (principal) ==

== ENCOUNTER → 2018-08-27 | Outpatient (CLI) | payer OTHER ==
[~2018-08-27] MED LIST changes: +MACROBID 100 M100 M1 PO; +NAPROSYN500 MG PO; +PYRIDIUM200 MG PO; +ZOFRAN4 MG PO
[2018-08-27 14:30] VITALS: BP 121/86
--- NOTE | 2018-08-27 15:20 | NUR ---
MIDLINE INTACT AND PATENT. INFUSION COMPLETED AND TOLERATED WELL. DENIES NEEDS AT DISCHARGE.
== END ==
LOC: M.INFUS 05:58
DX: N39.0 Urinary tract infection, site not specified (principal)

== ENCOUNTER → 2018-08-28 | Outpatient (CLI) | payer OTHER ==
[~2018-08-28] MED LIST changes: -MACROBID 100 M100 M1 PO; -NAPROSYN500 MG PO; -PYRIDIUM200 MG PO; -ZOFRAN4 MG PO
[2018-08-28 13:43] LABS: HEMATOCRIT 39.4 % (37.0-47.0); HEMOGLOBIN 13.3 gm/dL (12.0-15.0); MCH 34.3 pg (26.0-34.0); MCHC 33.8 g/dL (28.0-37.0); MCV 101.4 fL (80.0-100.0); MPV 7.2 fl. (7.2-11.1); RBC 3.88 mil/uL (4.20-5.00); RDW-CV 14.6 % (10.5-14.5); WBC 8.9 thou/uL (4.0-11.0)
[2018-08-28 13:55] LABS: ALBUMIN 3.4 g/dL (3.4-5.0); CALCIUM 9.8 mg/dL (8.5-10.1); POTASSIUM 3.7 mmol/L (3.5-5.1); TOTAL BILIRUBIN 0.2 mg/dL (<0.1-1.0); TOTAL PROTEIN 7.6 g/dL (6.4-8.2)
[2018-08-28 14:50] VITALS: BP 122/74
--- NOTE | 2018-08-28 15:06 | NUR ---
ARRIVED AMBULATORY. MADE SELF COMFORTABLE IN RECLINER. LABS DRAWN PER ORDER. MIDLINE INTACT AND PATENT. INFUSION COMPLETED AND TOLERATED WELL. DENIES NEEDS AT DISCHARGE.
== END ==
LOC: M.INFUS 05:15
PROVIDERS: Specialist
DX: N39.0 Urinary tract infection, site not specified (principal)

== ENCOUNTER → 2018-08-29 | Outpatient (CLI) | payer OTHER ==
[~2018-08-29] MED LIST changes: +MACROBID 100 M100 M1 PO; +NAPROSYN500 MG PO; +PYRIDIUM200 MG PO; +ZOFRAN4 MG PO
[2018-08-29 11:04] VITALS: BP 124/54
--- NOTE | 2018-09-01 07:58 | CON ---
[address] [address] CONSULTATION Name: ARIELLE RAMÍREZ Room: [facility] HaileySejalEve.#: [id number] Admission: 08/29/18 Attend Phys: Dayton Nguyen MD Discharge: Date of : 75 Report #: [id number] THIS REPORT FOR: //name// CC: [facility] physician/PCP Dayton Nguyen DATE OF SERVICE: 08/29/2018 The patient returned in the outpatient infusion area for ongoing treatment for complicated urinary tract infection, had an obstructive uropathy due to ureteral stone. This was treated with ureteral stents, which remains in place. She has completed roughly 8 days of therapy post-discharge of planned 10 days. In general, she is doing somewhat better. She is requiring less narcotic analgesics. Denies any fevers or chills. Appetite has been fair. She did followup with Urology earlier today, Dr. Pa, who did plain films, did not see a radiopaque ureteral stone. She was instructed to return in 1 week for stent removal. Complicated urinary tract infection due to multiple resistant Klebsiella pneumoniae. We will continue ertapenem as prescribed, extend additional 3 days through the middle of next week. We did review her labs. Noted somewhat of an increased transhepatic transaminases over her hospital levels due to an adverse drug effect, medication-induced hepatitis is not clear. She does not have any particular gastrointestinal related complaints. We will repeat labs on 09/01/2018. <ELECTRONICALLY SIGNED> By: Dayton Nguyen MD 09/01/18 0758 [id number] [id number] Nguyen MD /nt
== END ==
LOC: M.INFUS 03:24
DX: N39.0 Urinary tract infection, site not specified (principal); B96.1 Klebsiella pneumoniae [K. pneumoniae] as the cause of diseases classified elsewhere

== ENCOUNTER → 2018-08-30 | Outpatient (CLI) | payer OTHER ==
[~2018-08-30] MED LIST changes: -MACROBID 100 M100 M1 PO; -NAPROSYN500 MG PO; -PYRIDIUM200 MG PO; -ZOFRAN4 MG PO
== END ==
LOC: M.INFUS 08:00
DX: N39.0 Urinary tract infection, site not specified (principal)

== ENCOUNTER → 2018-08-31 | Outpatient (CLI) | payer OTHER | LOC: M.INFUS 08:00 | DX: N39.0 Urinary tract infection, site not specified (principal) ==

== ENCOUNTER → 2018-09-01 | Outpatient (CLI) | payer OTHER ==
[2018-09-01 16:10] VITALS: BP 98/63
[2018-09-01 18:02] LABS: ALBUMIN 3.5 g/dL (3.4-5.0); CALCIUM 8.9 mg/dL (8.5-10.1); CREATININE 0.9 mg/dL (0.6-1.3); POTASSIUM 3.4 mmol/L (3.5-5.1); TOTAL BILIRUBIN 0.2 mg/dL (<0.1-1.0); TOTAL PROTEIN 7.3 g/dL (6.4-8.2)
== END ==
LOC: M.INFUS 01:10
PROVIDERS: Specialist
DX: N39.0 Urinary tract infection, site not specified (principal)

== ENCOUNTER → 2018-09-02 | Outpatient (CLI) | payer OTHER ==
[2018-09-02 12:58] VITALS: BP 107/60
== END ==
LOC: M.INFUS 04:48
DX: N39.0 Urinary tract infection, site not specified (principal)

== ENCOUNTER → 2018-09-03 | Outpatient (CLI) | payer OTHER ==
[2018-09-03 13:55] VITALS: BP 121/81
--- NOTE | 2018-09-03 15:10 | NUR ---
PT WAS DISCHARGED HOME WITH HOME INSTRUCTIONS. SHE IS STEADY ON HER FEET WITH NO CO OF PAIN OR NAUSEA A THIS TIME, WITH PT.
== END ==
LOC: M.INFUS 05:22
DX: N39.0 Urinary tract infection, site not specified (principal)

== ENCOUNTER → 2018-09-05 | Day surgery (SDC) | payer OTHER ==
--- NOTE | ~2018-09-05 | OP ---
[facility] [address] [place] [address] OPERATIVE REPORT Name: ARIELLE RAMÍREZ Room: [facility] Pipe.#: [id number] Admission: 09/05/18 Attend Phys: Navid Pa MD Discharge: Date of : 75 Report #: [id number] THIS REPORT FOR: //name// CC: [facility] physician/PCP Navid Pa DATE OF SERVICE: 09/05/2018 PREOPERATIVE DIAGNOSES: Right ureteral calculus and urinary tract infection. POSTOPERATIVE DIAGNOSES: Right ureteral calculus and urinary tract infection. PROCEDURE: Cystoscopy, right ureteral stent exchange, right ureteroscopy with stone extraction. SURGEON: Navid Pa M.D. ANESTHESIA: General. ESTIMATED BLOOD LOSS: None. DRAINS: 6 x 28 right ureteral stent. SPECIMENS: Stones. COMPLICATIONS: None. INDICATIONS: This is a 43-year-old female who underwent recent stent placement for an obstructing right distal ureteral calculus and urinary tract infection. She has had a treatment course of IV antibiotics and now presents for definitive stone management. Options were discussed. She elects cystoscopy with right ureteral stent exchange, ureteroscopy with possible laser lithotripsy and stone extraction. Risks of procedure were explained. She voiced clear understanding and wants to proceed. DESCRIPTION OF PROCEDURE: The patient was pretreated with IV vancomycin based on her preoperative urine culture. After induction of general anesthesia, she was positioned, prepped and draped in the lithotomy position. A timeout procedure was performed. Initially fluoroscopy on the cystoscopy table was noted not to be functioning. Attempts to correct that were unsuccessful, so the patient was carefully moved with the assistance of the operating room crew and anesthesia to another room with a C-arm. She was reprepped and draped and tolerated this well. Cystourethroscopy was then performed. The urethra was normal. Systematic examination of the bladder does not reveal any stones or lesions. Ureteral orifices were orthotopic. There was a right ureteral stent in place. Fluoroscopic interrogation over the right [place] [address] OPERATIVE REPORT Name: ARIELLE RAMÍREZ Room: [facility] Ana Luisa#: [id number] Admission: 09/05/18 Attend Phys: Navid Pa MD Discharge: Date of : 75 Report #: [id number] multiple calcifications over the renal shadow consistent with her known history of nephrocalcinosis on CT. I do not see any definite ureteral calculi. Stent was in good position. The stent was grasped with forceps and brought out to the urethral meatus where it was accessed with a Sensor wire. This was passed to the renal pelvis with fluoroscopic guidance. The stent was removed leaving the wire in place. A semirigid ureteroscope was advanced alongside the wire and into the distal ureter. There was edema in the distal ureter, but no stone was encountered, possibly representing proximal migration due to irrigant or prior instrumentation. I elected to examine the upper tract further with a flexible ureteroscope. The rigid ureteroscope was used to advance a second wire with visual and fluoroscopic guidance. Scope was removed leaving both wires in place. The obturator for an 11/13-Amharic x 28 cm access sheath was passed over the original wire with fluoroscopic guidance and passes easily. It was then passed in tandem with the sheath over the same wire and passes easily into the proximal ureter. The obturator and wire were removed leaving the sheath in place with a safety wire alongside. A flexible ureteroscope was passed into the renal pelvis and the calices were examined. Multiple areas of submucosal calcifications (Ant's plaques) were noted in the upper, mid and lower pole. There were no collecting system lesions. Two calculi were encountered in upper pole calices and one calculus was encountered in the lower pole nereida. These were extracted with basket extraction and came out through the sheath easily. Repeat examination of the calices reveals no remaining collecting system calculi. The remaining calcifications seen on the fluoroscopy were submucosal or intraparenchymal. The wire was noted in the renal pelvis. The scope was withdrawn in tandem with the sheath so that the ureter could be reexamined. The ureter was normal except for the edema previously mentioned in the distal ureter. The wire was subsequently loaded on the cystoscope and used for placement of a 6 x 28 right ureteral stent with good position confirmed in the renal pelvis fluoroscopically and in the bladder visually. Drainage from the stent was clear. The bladder was emptied and the scope was removed. Lidocaine jelly was given per urethra. The patient tolerated procedure well and was taken to the recovery room in stable condition. Plan will be to obtain a repeat radiograph in 1-2 weeks and then remove her stent if it does not show any significant residual ureteral fragments. By: 1723 1743Navid Pa MD /william
[2018-09-10 12:05] LABS: STONE CA OXALATE MONOHYDRATE 25 % (()); STONE CALCIUM PHOSPHATE 70 % (()); STONE COLOR Brown (())
== END | disposition home or self-care (01) ==
LOC: M.SUR 09:40
PROVIDERS: Urology
DX: N20.1 Calculus of ureter (principal); N39.0 Urinary tract infection, site not specified; Z88.8 Allergy status to other drugs, medicaments and biological substances; Z79.899 Other long term (current) drug therapy

== ENCOUNTER 2018-09-19 14:00 | Emergency (ER) | payer OTHER ==
[~2018-09-19] VITALS: Ht 162.6 cm; Wt 67.1 kg
[2018-09-19 15:18] LABS: URINE BLOOD 3+ (Negative); URINE CLARITY CLEAR; URINE COLOR YELLOW; URINE GLUCOSE-RANDOM NEGATIVE (Negative); URINE KETONES 1+ (Negative); URINE LEUKOCYTES-REFLEX 1+ (Negative); URINE NITRITE-REFLEX NEGATIVE (Negative); URINE PROTEIN 2+ (Negative); URINE SPECIFIC GRAVITY 1.025 (1.005-1.030); URINE UROBILINOGEN 0.2 E.U./dl (0.2-1.0)
[2018-09-19 15:19] LABS: URINE BILIRUBIN 1+ (Negative)
[2018-09-19 15:21] LABS: ICTOTEST (BILI CONFIRMATORY) Negative (Negative)
[2018-09-19 15:28] LABS: SQUAMOUS 0-3 Few /LPF (0-3); URINE WBC-REFLEX >25 Many /HPF (0-5)
[2018-09-19 15:29] LABS: BACTERIA-REFLEX 1-9 Few /HPF (None Seen); CASTS None Seen /LPF (None Seen); CRYSTALS None Seen /LPF (None Seen); URINE RBC 0-2 Rare /HPF (0-2)
[2018-09-19 15:49] LABS: HEMATOCRIT 35.9 % (37.0-47.0); HEMOGLOBIN 12.2 gm/dL (12.0-15.0); MCH 33.1 pg (26.0-34.0); MCV 97.2 fL (80.0-100.0); MPV 7.9 fl. (7.2-11.1); NUCLEATED RBCS 0 /100WBC; PLATELET COUNT* 236 thou/uL (150-400); RDW-CV 14.3 % (10.5-14.5); WBC 13.1 thou/uL (4.0-11.0)
[2018-09-19 15:59] LABS: ALBUMIN 3.1 g/dL (3.4-5.0); CALCIUM 8.3 mg/dL (8.5-10.1); CREATININE 0.8 mg/dL (0.6-1.3); POTASSIUM 3.5 mmol/L (3.5-5.1); TOTAL BILIRUBIN 0.2 mg/dL (<0.1-1.0); TOTAL PROTEIN 6.5 g/dL (6.4-8.2)
[2018-09-19] MEDS ORDERED: MACROBID 100 M100 M1 PO (16:17)
[2018-09-19] MEDS ORDERED: ZOFRAN4 MG PO (16:17)
[2018-09-19] MEDS ORDERED: NAPROSYN500 MG PO (16:17)
[2018-09-19] MEDS ORDERED: TRAMADOL 50 MG50 MG PO (16:17)
[2018-09-19] MEDS ORDERED: PYRIDIUM200 MG PO (16:18)
[2018-09-19 16:23] LABS: ABSOLUTE EOSINOPHILS 0.1 thou/uL (0.0-0.7); ABSOLUTE LYMPHOCYTES 0.8 thou/uL (0.8-5.3); ABSOLUTE MONOCYTES 0.7 thou/uL (0.0-1.2); ABSOLUTE NEUTROPHILS 11.5 thou/uL (1.6-8.1); PLATELET ESTIMATE ADEQUATE
[2018-09-19 16:30] VITALS: BP 96/55
== END 2018-09-19 16:43 | disposition home or self-care (01) ==
LOC: M.ERS 14:00
PROVIDERS: Nurse Practitioner Family
DX: N39.0 Urinary tract infection, site not specified (principal); Z96.0 Presence of urogenital implants; Z90.49 Acquired absence of other specified parts of digestive tract; Z88.5 Allergy status to narcotic agent; Z88.6 Allergy status to analgesic agent

== ENCOUNTER 2018-12-26 18:20 | Emergency (ER) | payer OTHER ==
[~2018-12-26] VITALS: Ht 162.6 cm; Wt 71.7 kg
[~2018-12-26 18:20] MED LIST changes: +MACROBID 100 M100 M1 PO; +NAPROSYN500 MG PO; +PYRIDIUM200 MG PO; +ZOFRAN4 MG PO
[2018-12-26 20:25] VITALS: BP 136/85
== END 2018-12-26 20:26 | disposition home or self-care (01) ==
LOC: M.ERS 18:20
DX: S06.0X0A Concussion without loss of consciousness, initial encounter (principal); Z90.49 Acquired absence of other specified parts of digestive tract; Z87.442 Personal history of urinary calculi; Z98.890 Other specified postprocedural states; Z88.5 Allergy status to narcotic agent; Z88.6 Allergy status to analgesic agent; W22.8XXA Striking against or struck by other objects, initial encounter; Y93.89 Activity, other specified; Y92.89 Other specified places as the place of occurrence of the external cause; Y99.8 Other external cause status

== ENCOUNTER 2019-02-17 08:17 | Emergency (ER) | payer OTHER ==
[~2019-02-17] VITALS: Ht 162.6 cm; Wt 59.0 kg
[2019-02-17 08:20] VITALS: BP 145/93
[2019-02-17] MEDS ORDERED: TRAMADOL 50 MG50 MG PO (08:38)
[2019-02-17] MEDS ORDERED: AMOXICILLIN 50500 MG PO (08:38)
== END 2019-02-17 08:53 | disposition home or self-care (01) ==
LOC: M.ERS 08:17
DX: K04.7 Periapical abscess without sinus (principal); Z98.51 Tubal ligation status; Z90.49 Acquired absence of other specified parts of digestive tract; Z87.442 Personal history of urinary calculi; Z88.6 Allergy status to analgesic agent; Z88.5 Allergy status to narcotic agent

== ENCOUNTER 2019-05-14 08:20 | Emergency (ER) | payer OTHER ==
[~2019-05-14] VITALS: Ht 162.6 cm; Wt 62.1 kg
[~2019-05-14 08:20] MED LIST changes: +AMOXICILLIN 50500 MG PO
[2019-05-14 09:15] LABS: INFLUENZA A ANTIGEN Negative (Negative); INFLUENZA B ANTIGEN Negative (Negative)
[2019-05-14] MEDS ORDERED: AZITHROMYCIN 2250 MG PO (09:55)
[2019-05-14] MEDS ORDERED: PROAIR HFA8.5 GM INH (09:59)
[2019-05-14] MEDS ORDERED: PREDNISONE50 MG PO (09:59)
[2019-05-14 10:15] VITALS: BP 141/90
== END 2019-05-14 10:17 | disposition home or self-care (01) ==
LOC: M.ERS 08:20
PROVIDERS: Personal Emergency Response Attendant
DX: J06.9 Acute upper respiratory infection, unspecified (principal); Z87.442 Personal history of urinary calculi; Z90.49 Acquired absence of other specified parts of digestive tract; Z98.51 Tubal ligation status; Z88.6 Allergy status to analgesic agent; Z88.5 Allergy status to narcotic agent

== ENCOUNTER 2020-11-09 22:30 | Inpatient (IN) | payer OTHER ==
[~2020-11-09] VITALS: Ht 162.6 cm; Wt 71.2 kg
--- NOTE | ~2020-11-09 | OP ---
[address] [address] OPERATIVE REPORT Name: ARIELLE RAMÍREZ Room: [address] IN M.R.#: [id number] Admission: 11/12/20 Attend Phys: Héctor Ayon MD Discharge: Date of : 75 Report #: [id number] THIS REPORT FOR: cc: YASH - No family physician/PCP FAM - No family physician/PCP Jaylon Bae MD ~ DATE OF SERVICE: 11/12/2020 PREOPERATIVE DIAGNOSES: A 17 mm x 11 mm right renal pelvic stone and multiple bilateral nonobstructive renal calculi. POSTOPERATIVE DIAGNOSES: A 17 mm x 11 mm right renal pelvic stone and multiple bilateral nonobstructive renal calculi. PROCEDURES: Cystoscopy, right stent removal, right ureteroscopy with holmium laser lithotripsy, right ureteral stent placement with attached string. STAFF SURGEON: Jaylon Bae MD REAL ESTATE LEASING MANAGER: None. ANESTHESIA: General. ESTIMATED BLOOD LOSS: None. COMPLICATIONS: None. SPECIMENS: None. DRAINS: A 28 cm x 4.8 South Korean right ureteral stent. INDICATIONS: The patient is a pleasant 45-year-old white female with history of kidney stones, presented with acute onset right flank pain at [facility]. CT scan documented 17 mm x 11 mm right renal pelvic stone and bilateral nonobstructing renal calculi. She underwent urgent stent placement on 11/10/2020. Since that time; however, she has had rather significant right flank pain, difficult with her pain management despite the stent being in the reasonable location. She was counseled regarding options, regarding extracorporeal shockwave lithotripsy and ureteroscopic management of her stone. Due to pain control issue and not wanting to leave the stent in for extended period of time, she elected for definitive cystoscopy, right stent removal, right ureteroscopy, holmium laser lithotripsy, possible stone extraction, possible right ureteral stent. Risks and benefits of the procedure were explained and informed [place] [address] OPERATIVE REPORT Name: ARIELLE RAMÍREZN Room: [address] [place] ..#: [id number] Admission: 11/12/20 Attend Phys: Héctor Ayon MD Discharge: Date of : 75 Report #: [id number] DESCRIPTION OF PROCEDURE: The patient was taken to the operating room, comfortably placed in the dorsal lithotomy position under adequate general anesthesia. She was sterilely prepped and draped in standard fashion exposing only the genitalia. She was up-to-date on antibiotic therapy as prescribed. Appropriate timeout was carried out and all were in agreement. A 22-South Korean cystoscope with the obturator in place was blindly inserted into the bladder and the obturator was removed, draining clear harinder colored urine. Bladder was systematically viewed. Both ureteral orifices identified normal. No bladder calculi seen or foreign body observed other than the stent protruding from the right ureteral orifice. The stent appeared to be in a reasonable location. A dense stone could be seen in the right renal pelvis. Grasping forceps were used to grasp the stent and brought out through the urethral meatus. A 0.035 Glidewire was advanced through the existing stent up to the kidney. The old stent was removed. A 4.5 South Korean tapered to a 6.5 South Korean ____ semirigid ureteroscope was advanced through the urethra up the right ureteropelvic junction. No stone was noted in the ureter. A semirigid scope was removed and an 8-South Korean flexible scope was placed over the guidewire into the proximal ureter. The guidewire was removed. The flexible scope was advanced into the renal pelvis, identified the stone, and ____ holmium laser fiber set at 6.4 de anda began to fragment the stone in multiple fragments until the stone was completely pulverized. I did find another stone in the lower mid pole nereida, which also was pulverized. We could see some densities under fluoroscopy, but under direct visualization, could not see or identify a significant stone burden remain. A 0.035 Glidewire was advanced through the flexible scope. The flexible scope was removed and a 28 cm x 4.8-South Korean stent was then placed in position with good coil in the renal pelvis and good coil in the bladder. String was left attached and secured to ipsilateral labia majora. She was extubated in the operating room, transferred to [facility] with assistance and went to recovery in stable condition. We will have her remove the stent next Saturday. Follow up in our office in 2 weeks with cinthya RODRIGUEZ. By: 0930 1249Jaylon Bae MD /william
[~2020-11-09 22:30] MED LIST changes: +AZITHROMYCIN 2250 MG PO; +PREDNISONE50 MG PO; +PROAIR HFA8.5 GM INH
[2020-11-09 23:07] VITALS: BP 137/83
[2020-11-10 00:08] LABS: HEMATOCRIT 41.3 % (37.0-47.0); HEMOGLOBIN 14.2 gm/dL (12.0-15.0); MCH 33.7 pg (26.0-34.0); MCHC 34.4 g/dL (28.0-37.0); MPV 7.6 fl. (7.2-11.1); NUCLEATED RBCS 0 /100WBC; PLATELET COUNT* 188 thou/uL (150-400); RBC 4.21 mil/uL (4.20-5.00); RDW-CV 13.9 % (10.5-14.5); WBC 9.6 thou/uL (4.0-11.0)
[2020-11-10 00:12] LABS: CALCIUM 8.4 mg/dL (8.5-10.1); CREATININE 0.8 mg/dL (0.6-1.3); POTASSIUM 3.8 mmol/L (3.5-5.1)
[2020-11-10 00:16] LABS: ALBUMIN 3.8 g/dL (3.4-5.0); TOTAL BILIRUBIN 0.7 mg/dL (<0.1-1.0); TOTAL PROTEIN 6.9 g/dL (6.4-8.2)
[2020-11-10 00:18] LABS: URINE BILIRUBIN NEGATIVE (Negative); URINE BLOOD TRACE (Negative); URINE COLOR YELLOW; URINE GLUCOSE-RANDOM NEGATIVE (Negative); URINE PROTEIN TRACE (Negative); URINE SPECIFIC GRAVITY 1.015 (1.005-1.030); URINE UROBILINOGEN 0.2 E.U./dl (0.2-1.0)
[2020-11-10 00:19] LABS: URINE CLARITY SL CLOUDY; URINE KETONES 3+ (Negative); URINE LEUKOCYTES-REFLEX 2+ (Negative); URINE NITRITE-REFLEX POSITIVE (Negative)
[2020-11-10 00:26] LABS: AMP/METHAMP Negative (Negative); BARBITURATES Negative (Negative); BENZODIAZEPINES Negative (Negative); COCAINE Negative (Negative); METHADONE Negative (Negative); OPIATES Negative (Negative); PCP Negative (Negative); THC POSITIVE (Negative)
[2020-11-10 00:34] LABS: BACTERIA-REFLEX >30 Many /HPF (None Seen); CASTS None Seen /LPF (None Seen); CRYSTALS None Seen /LPF (None Seen); MUCUS 0-3 Light strn/LPF (None Seen); SQUAMOUS 0-3 Few /LPF (0-3); URINE WBC-REFLEX >25 Many /HPF (0-5); WBC CLUMPS Moderate (None Seen)
[2020-11-10] MEDS ORDERED: ULTRAM 50MG TAB50 MG PO (03:02)
[2020-11-10] MEDS ORDERED: TORADOL 10 MG T10 MG PO (03:02)
[2020-11-10] MEDS ORDERED: AUGMENTIN 500-1 EACH PO (03:02)
[2020-11-10 03:21] LABS: ABSOLUTE BASOPHILS 0.1 thou/uL (0.0-0.2); ABSOLUTE EOSINOPHILS 0.2 thou/uL (0.0-0.7); ABSOLUTE LYMPHOCYTES 0.5 thou/uL (0.8-5.3); ABSOLUTE MONOCYTES 0.2 thou/uL (0.0-1.2); ABSOLUTE NEUTROPHILS 8.6 thou/uL (1.6-8.1); PLATELET ESTIMATE ADEQUATE
[2020-11-10 04:50] VITALS: BP 104/56
--- NOTE | 2020-11-10 05:54 | NUR ---
PT ARRIVED TO THE UNIT AT 0500 FROM THE ER. A&O X4. RATED PAIN 2/10. C/O NAUSEA, ZOFRAN GIVEN. UP INDEPENDENTLY TO THE BR. NPO FOR UROLOGY CONSULT. IVF INFUISING. CALL LIGHT WITHIN REACH. WILL CONTINUE TO MONITOR.
[2020-11-10 07:50] VITALS: BP 111/63
--- NOTE | 2020-11-10 12:08 | NUR ---
Pt is A&O. Resides at home with her dtr. Independent. No DME. No hx of HH or SNF. Goal is home at dc, no needs anticipated. Pt is patient pay, does not qualify for [place] Medicaid. Possible dc to home later today.
[2020-11-10 15:21] VITALS: BP 145/88
--- NOTE | 2020-11-10 17:50 | NUR ---
PT A&OX4 VSS. PRN PAIN MEDICATION ADMINISTERED THIS SHIFT PER PT REQUEST. PT NPO UPON ASSUMING CARE THIS AM FOR PROCEDURE TODAY. PT LEFT UNIT TO PACU APPROX 1100. PT RETURNED 1315. REGULAR DIET RESUMED POST PROCEDURE. PT REMAINS ON ROOM AIR. IV TO LAC PATENT, DRESSING C/D/I. NS RUNNING AT 125ML/HOUR. PT UP AD ANDREINA, GAIT STEADY. PT REMAIONS CONTINENT OF B/B. PT RESTS IN ROOM WITH CALL IGHT IN REACH. WILL CONTINUE TO MONITOR
[2020-11-10 19:30] VITALS: BP 149/86
[2020-11-11 03:57] LABS: HEMATOCRIT 38.7 % (37.0-47.0); HEMOGLOBIN 13.3 gm/dL (12.0-15.0); MCH 33.9 pg (26.0-34.0); MCHC 34.2 g/dL (28.0-37.0); MCV 99.1 fL (80.0-100.0); MPV 8.1 fl. (7.2-11.1); RBC 3.91 mil/uL (4.20-5.00); RDW-CV 13.8 % (10.5-14.5); WBC 4.9 thou/uL (4.0-11.0)
[2020-11-11 04:15] LABS: CALCIUM 8.6 mg/dL (8.5-10.1); CREATININE 0.8 mg/dL (0.6-1.3); POTASSIUM 3.8 mmol/L (3.5-5.1)
--- NOTE | 2020-11-11 05:08 | NUR ---
PT AO X4 LYING IN BED AT TIME OF ASSESSMENT. SHE REPORTS PAIN IN RLQ 5/10 AND IS TAKING HYDRODODONE FOR THIS WITH GOOD RESULTS. ALLERGY LIST REVIEWED AND PT STATES SHE IS UNSURE IF IT WAS HYDROCODONE OR VICODIN THAT MADE HER NAUSEOUS. SHE REPORTS NO ILL AFFECTS FROM RECENT DOSES. PT IV WAS INFILTRATED AND NEW ACCESS WAS NOT PLACED UNTIL EARLY AM. PT IS TAKING PAIN MEDS EVERY 4 HRS, SHE DID HAVE SOME NAUSEA FOR WHICH ZOSYN WAS GIVEN AND THEN APPROX 0300 SHE HAD SOME BREAKTRHOUGH PAIN FOR WHICH TORODOL WAS GIVEN. PT HAS BEEN AMBULATING TO THE TOILET AD ANDREINA. IVF INFUSING PER ORDER. NOTE FROM SURG STATES PCP TO ORDER ANTIBIOTICS, NONE ORDERED OF YET.
[2020-11-11 07:59] VITALS: BP 139/87
[2020-11-11] MEDS ORDERED: HYDROCODON-ACE1 EAC7 PO (08:13)
[2020-11-11] MEDS ORDERED: CIPRO500 M1 PO (08:13)
[2020-11-11] MEDS ORDERED: IBU800 MG PO (08:13)
[2020-11-11] MEDS ORDERED: ONDANSETRON ODT8 MG PO (08:13)
[2020-11-11 11:37] VITALS: BP 139/87
--- NOTE | 2020-11-11 12:38 | NUR ---
Anticipate dc to home tomorrow. Pt continues to have pain control issues today. No needs.
--- NOTE | 2020-11-11 15:38 | OP ---
[address] [address] OPERATIVE REPORT Name: ARIELLE RAMÍREZ Room: [address] Jose Orosco#: [id number] Admission: 11/10/20 Attend Phys: Héctor Ayon MD Discharge: Date of : 75 Report #: [id number] THIS REPORT FOR: cc: YASH - No family physician/PCP FAM - No family physician/PCP Jaylon Bae MD ~ DATE OF SERVICE: 11/10/2020 PREOPERATIVE DIAGNOSES: 1. A 17 mm x 11 mm right renal pelvic stone with hydronephrosis. 2. Bilateral nonobstructing renal calculi. POSTOPERATIVE DIAGNOSES: A 17 mm x 11 mm right renal pelvic stone with hydronephrosis. PROCEDURES: Cystoscopy, right retrograde pyelogram, right ureteral stent placement. STAFF SURGEON: Jaylon Bae MD ANESTHESIA: General. ESTIMATED BLOOD LOSS: None. COMPLICATIONS: None. SPECIMEN: None. DRAIN: A 26 cm x 6-Ethiopian right ureteral stent. INDICATIONS: The patient is a pleasant 45-year-old white female with a history of kidney stones, who presented to [facility] with severe right flank pain. CT scan confirmed a 17 mm x 11 mm right renal pelvic stone with some hydronephrosis. She was counseled regarding treatment options, elected for definitive cystoscopy, retrograde pyelogram and right ureteral stent placement, possible ureteroscopy if indicated. After risks and benefits of the procedure were explained, informed consent was obtained. DESCRIPTION OF PROCEDURE: The patient was taken to the operating room comfortably placed in the dorsal lithotomy position under adequate general anesthesia. She was sterilely prepped and draped in sterile fashion exposing only the genitalia. She is up-to-date on antibiotic therapy. Appropriate timeout was carried out and all were in agreement. A 22-Ethiopian cystoscope with the obturator in place was blindly inserted into the urethra. The obturator was removed, draining clear harinder colored urine. Bladder was systematically viewed, [place] [address] OPERATIVE REPORT Name: ARIELLE RAMÍREZ LIDIA Room: [address] M.R.#: [id number] Admission: 11/10/20 Attend Phys: Héctor Ayon MD Discharge: Date of : 75 Report #: [id number] both ureteral orifices identified normal. No bladder calculi seen or formed. Bladder mucosa was smooth. A 5-Ethiopian open-ended catheter placed in the right location and a retrograde pyelogram performed showing a narrow caliber ureter all the way up to the mid palmar junction with a large filling defect in the renal pelvis, corresponding with stone seen on CT scan. A 0.035 Glidewire was advanced up the right ureter along the kidney. Over the guidewire, a 26 cm x 6-Ethiopian ureteral stent was put in place and coiling adjacent to the stone beyond the UPJ obstruction and a good coil in the bladder. Bladder was drained. Cystoscope was removed. She tolerated the procedure extremely well. She was extubated in the operating room, transferred to [facility] with assistance and went to recovery room in stable condition. Stone was easily seen on fluoroscopy, so I would like to set up for ESWL at next available appointment. <ELECTRONICALLY SIGNED> By: Jaylon Bae MD 11/11/20 1538 1228 [id number] Logan Bae MD /nt
[2020-11-11 15:43] VITALS: BP 123/76
--- NOTE | 2020-11-11 16:38 | NUR ---
PT UP AD ANDREINA WITH STEADY GAIT. PT REPORTED INCREASED ABD PAIN THAT WAS NOT CONTROLLED. DR MAHARAJ AWARE AND PAIN MEDICATION FREQUENCY FOR TORADOL DECREASED. PRN FENTANYL, TORADOL, AND HYDROCODONE GIVEN THROUGH OUT THE DAY PER PT REQUESTS. PT TO BE NPO AFTER MIDNIGHT FOR SURGERY IN AM WITH DR PENNINGTON. PT AWARE. NEW IV ACCESS OBTAINED. CALL LIGHT IN REACH.
[2020-11-11 20:05] VITALS: BP 132/82
--- NOTE | 2020-11-12 04:34 | NUR ---
ASSUMED CARE AT 1905H, ON RA AND TOLERATED. STILL WITH RUQ PAIN, PRN MEDS GIVEN. KEPT NPO FOR PROCEDUCE TODAY AT 0800H. NO FEVER AND NO DISTRESS. CONTINUE MONITORING AND TOWARDS GOALS.
[2020-11-12 07:24] VITALS: BP 117/85
[2020-11-12 16:51] VITALS: BP 134/86
--- NOTE | 2020-11-12 18:34 | NUR ---
PATIENT HAS REMAINED A&OX4, PLEASANT AND COOPERATIVE WITH CARES THIS SHIFT. PATIENT HAD PROCEDURE THIS MORNING WITH URINARY STONE REMOVAL AND STENT PLACEMENT. PATIENT STILL C/O PAIN ASSOCIATED WITH STENT SINCE RETURNING TO UNIT AT APPROX. 1007 THIS MORNING. PATIENT IS UP AD ANDREINA IN ROOM. CALL LIGHT WITHIN REACH.
[2020-11-12 20:00] VITALS: BP 129/86
--- NOTE | 2020-11-13 01:31 | NUR ---
PT DISLODGED STENT STRING WHILE WIPING. THE STRING HAS DISLODGED AND IS PARTIALLY INSIDE. SHE IS REPORTING PAIN IN BOTH RIGHT UPPER AND LOWER QUANDRANTS NOW, AND SO I PAGED DR PENNINGTON AND TOLD HIM THIS. HE ADVISED TO REMOVE THE STENT SINCE IT IS DISLODGED. REMOVED AT 0130 CHARTED PHYSICIAN CONTACT
[2020-11-13 04:46] VITALS: BP 174/97
--- NOTE | 2020-11-13 05:41 | NUR ---
ASSUMED PT CARE AT 1930. PT ANGRY AMD QUITE BELLIGERENT THAT SHE HAD BEEN WAITING FOR PAIN MEDICATION AND THAT SHE HAD ALREADY CALLED THE DIE CLEANER. PT GIVEN IV TORODOL, DIE CLEANER ARRIVED AND GAVE PT HYDROCODONE IN ADDITION. PT C/O NAUSEA, GIVEN IV ZOFRAN. PER PT WHEN SHE WAS WIPING AFTER VOIDING STENT STRING WAS DISLODGED. DR. PENNINGTON PAGED BY CHARGE NURSE AND ADVISED WE WERE TO REMOVE STENT. STENT REMOVED AND PLACED IN BIOHAZARD BAG. PT TOLERATED WELL BUT THEN UPSET BY TEXT SHE RECEIVED FROM HER DAUGHTER. PT AGGRESSIVE AND ABUSIVE STATING THAT SHE HAD NOT RECEIVED ANY PAIN MEDS THIS SHIFT WHEN IN REALITY SHE RECEIVED FENTANYL X2, TORODOL X2, HYDROCODONE X1, ZOFRAN X2 AND PHENERGAN X1. CHARGE NURSE HAS TAKEN OVER CARE OF THIS PT.
--- NOTE | 2020-11-13 05:44 | NUR ---
ASSISTED NURSE IN CARE OF THIS PATIENT. THIS PATIENT WAS VERY UPSET WITH THE CARE THAT SHE HAS RECEIVED THIS SHIFT. ALL MEDS AVAILABLE HAVE BEEN GIVEN. PAGED AT 0430 FOR MORE MEDICATION FOR NAUSEA. SHE HAS RECEIVED FENTANYL, TORODOL, HYDROCODONE. ZOFRAN. NOW HAS ORDER FOR PHENERGEN. SHE WAS GIVEN PHENERGEN THEN WANTED IV PHENERGEN RIGHT AWAY. NOT AVAILABLE RIGHT AWAY. SHE BEGAN TO CUSS AT ME AND TELL ME SHE DID NOT HAVE ANY PAIN OR NAUSEA RELIEF FOR 6 HOURS. JUDO INSTRUCTOR NOTIFIED. NAUSEA MEDICATION ORDERED AND ADMINISTERED, PAIN MEDS ADMINISTERED. SHE HAD TO WAIT AT ONE POINT FOR HER MEDICATION ALL NURSING STAFF WERE ASSISTING OTHER PATIENTS. I APOLOGIZED AND EXPLAINED WE NEEDED A NEW ORDER FOR MEDICATION FROM . WE HAD TO WAIT FOR THIS AND HE DID CALL BACK AND ORDER GIVEN. SHE IS VERY AGITATED.
[2020-11-13 08:15] VITALS: BP 124/76
[2020-11-13 16:18] VITALS: BP 149/87
--- NOTE | 2020-11-13 18:28 | NUR ---
PATIENT HAS REMAINED A&OX4, PLEASANT AND COOPERATIVE WITH CARES THIS SHIFT. PATIENT REPORTED ABSENCE OF PAIN AT THE BEGINNING OF SHIFT HOWEVER HAS HAD INCREASED PAIN THE DAY HAS PROGRESSED. PAGED DR. MAHARAJ AND RECEIVED ORDER FOR TORADOL Q6HRS PRN, PATIENT STATES THAT TORADOL HELPS CONTROL THE PAIN THE BEST AND LASTS LONGER. FLUIDS AND MEDICATIONS ADMINISTERED ORDERED. PATIENT HAS BEEN UP AD ANDREINA IN ROOM. HAT, STRAINER AND SPECIMEN CUP IN ROOM SO THAT ALL URINE MAY BE COLLECTED AND STONE(S) RETRIEVED IF PASSED. CALL LIGHT WITHIN REACH.
[2020-11-13 19:55] VITALS: BP 136/83
--- NOTE | 2020-11-14 05:22 | NUR ---
PATIENT RESTING IN BED. PATIENT IS UP AD ANDREINA IN ROOM. PATIENT HAS HAD COMPLAINTS OF PAIN AND NAUSEA, TREATED ADEQUATELY WITH MEDICATION. PATIENT HAS BEEN ABLE TO SLEEP. URINE HAS BEEN STRAINED, NO STONES RECOVERED. PATIENT DENIES ANY NEEDS AT THIS TIME. CALL LIGHT WITHIN REACH.
[2020-11-14 08:20] VITALS: BP 127/84
[2020-11-14 11:35] LABS: CALCIUM 8.4 mg/dL (8.5-10.1); CREATININE 0.8 mg/dL (0.6-1.3); POTASSIUM 3.6 mmol/L (3.5-5.1)
--- NOTE | 2020-11-14 13:02 | NUR ---
Possible dc to home later today, if able to pass stone. Xray today pending. Pt does not qualify for [facility]. No needs anticipated at dc.
[2020-11-14 14:15] VITALS: BP 139/87
--- NOTE | 2020-11-14 15:02 | NUR ---
PT A&OX4 VSS. PT UP AD ANDREINA GAIT STEADY. PINK URINE R/T KIDNEY STONE/STENT. PT REMAINS ON ROOM AIR, O2 SAT 99-100%. PRN NAUSEA MEDICATION X1 THIS SHIFT. PRN PO PAIN MEDICATION X1 THIS SHIFT. IV TO RFA DC'D PRIOR TO PT LEAVING UNIT AT DISCHARGE. PT SHOWERED PRIOR TO DC AND DRESSED INDEPENDENTLY. PT STATES UNDERSTANDING OF DC INSTRUCITONS AND F/U INFORMATION PROVIDED. PT ALSO AWARE OF RX ELECTRONICALLY SUBMITTED BY PHYSICIAN. PT EDUCATED REGARDING NEED TO INCREASE FLUID INTAKE. PT PROVIDED STRAINERS FOR URINE TO COLLECT STONE FRAGMENT. UROLOGY TO CONTACT THIS PT FOR FOLLOW-UP. PT LEFT UNIT IN WHEELCHAIR TRANSPORTED BY NURSING STAFF.
[2020-11-14 15:23] VITALS: BP 139/87
== END 2020-11-14 15:05 | disposition home or self-care (01) | DRG 661 ==
LOC: M.ERS 22:30 → M.TBA-ER 11-10 03:27 → M.ORTHSURG 11-10 05:02
PROVIDERS: Family Medicine; Internal Medicine; Personal Emergency Response Attendant; ADMIT Internal Medicine; ATTEND Internal Medicine
DX: N13.6 Pyonephrosis (principal); R31.9 Hematuria, unspecified; N20.0 Calculus of kidney; I10 Essential (primary) hypertension; Z20.822 Contact with and (suspected) exposure to COVID-19; Z90.49 Acquired absence of other specified parts of digestive tract; Z79.899 Other long term (current) drug therapy; Z88.5 Allergy status to narcotic agent

== ENCOUNTER 2020-11-15 13:09 | Inpatient (IN) | payer OTHER ==
[~2020-11-15] VITALS: Ht 167.6 cm; Wt 63.5 kg
--- NOTE | ~2020-11-15 | OP ---
[address] [address] OPERATIVE REPORT Name: ARIELLE RAMÍREZ Room: [address] IN M.R.#: [id number] Admission: 11/15/20 Attend Phys: Isai Kearney Discharge: 11/17/20 Date of : 75 Report #: [id number] THIS REPORT FOR: cc: YASH - No family physician/PCP FAM - No family physician/PCP Jaylon Bae MD ~ PREOPERATIVE DIAGNOSES: Steinstrasse of distal right ureter, nonobstructing renal calculi. POSTOPERATIVE DIAGNOSES: Steinstrasse of distal right ureter, nonobstructing renal calculi. PROCEDURES: Cystoscopy, right retrograde pyelogram, right ureteroscopy with stone extraction, placement of right ureteral stent with attached string. STAFF SURGEON: Jaylon Bae MD ANESTHESIA: General. ESTIMATED BLOOD LOSS: None. COMPLICATIONS: None. SPECIMENS: Right ureteral stone fragments. DRAINS: A 28 cm x 4.8 [place]ib[place]ian right ureteral stent. INDICATIONS: The patient is a pleasant 45-year-old white female who actually presented last week with a 7 mm right renal pelvic stone. She underwent right ureteral stent placement last week. She was not tolerating the stent well. The stent was removed and she subsequently underwent right stent removal, right ureteroscopy with holmium laser, the large right renal pelvic stone to pulverize many tiny fragments and a right ureteral stent was put in place with an attached string. However, later on Saturday, the stent actually inadvertently got pulled out. She was kept in the hospital until Saturday. Her pain had improved somewhat, but still requiring narcotic use. A followup CT scan that afternoon showed some stones in the distal right ureter. She was made n.p.o. after midnight for possible stone management last Saturday; however, she actually felt better and subsequently discharged to home. She returned yesterday again with increased pain. CT scan showed increased stone burden in the distal right ureter with steinstrasse. She was counseled regarding treatment options, elected for cystoscopy, right retrograde pyelogram, right ureteroscopy, possible holmium laser lithotripsy, possible placement of right ureteral stent. After the risks and benefits of the procedure were explained, an informed [place] [address] OPERATIVE REPORT Name: ARIELLE RAMÍREZ Room: [address]#: [id number] Admission: 11/15/20 Attend Phys: Isai Kearney Discharge: 11/17/20 Date of : 75 Report #: [id number] OPERATIVE PROCEDURE: The patient was taken to the operating room, comfortably placed in a dorsal lithotomy position under adequate general anesthesia. She was sterilely prepped and draped in standard fashion exposing only the genitalia. The patient is up-to-date on antibiotic therapy. Appropriate timeout was carried out and all were in agreement. A 21-Djiboutian cystoscope with the obturator in room and placed blindly inserted in the urethra. The obturator was removed, draining clear harinder colored urine. Bladder was systematically viewed. Both ureteral orifices identified normal. No bladder calculi seen or foreign body observed. Mucosa was smooth. An 8-D[place]iboutian cone tip catheter was placed in the right ureteral orifice and a retrograde pyelogram was performed showing hydronephrosis down to the ureterovesical junction. A semirigid scope was placed through the urethra up the right ureter. A 0.035 Glidewire was advanced up the right ureter, ____. The ureteroscope was then removed. The ureteroscope was put back in place through the urethra up the right ureter. The stone fragments were quite a few and pretty small. A 2.4 [place]ib[place]ian flat wire Scott basket was used to sequentially remove the stone fragments. Repeat ureteroscopy showed no damage to the ureter. The significant stone burden remained. The ureteroscope put in back up the right ureter above the iliac vessels. No other stones seen. The ureteroscope was removed. Because of the stone manipulation, I elected to place a stent one more time. Again, since there were no active stones in the ureter, elected to go ahead and leave an attached string. Again, I had a 28 cm x 4.8-Djiboutian ureteral stent was put in place position with a good coil in the renal pelvis and good coil in the bladder. The bladder was drained, cystoscope was removed. String was left attached to the labia majora with Tegaderm. She was taken to the operating room, transferred to [facility] with assistance in stable condition. We will have her stent removed on Saturday. Follow up in our office in 6 weeks with a KUB and a renal ultrasound. By: [id number] Bae MD /william
[~2020-11-15 13:09] MED LIST changes: +CIPRO500 M1 PO; +HYDROCODON-ACE1 EAC7 PO; +IBU800 MG PO; +ONDANSETRON ODT8 MG PO; +TORADOL 10 MG T10 MG PO
[2020-11-15 13:25] VITALS: BP 132/60
[2020-11-15 13:46] LABS: ABSOLUTE EOSINOPHILS 0.2 thou/uL (0.0-0.7); ABSOLUTE LYMPHOCYTES 1.7 thou/uL (0.8-5.3); ABSOLUTE MONOCYTES 0.9 thou/uL (0.0-1.2); ABSOLUTE NEUTROPHILS 13.3 thou/uL (1.6-8.1); BASOPHILS 0.3 %; EOSINOPHILS 1.2 %; HEMATOCRIT 43.6 % (37.0-47.0); HEMOGLOBIN 14.6 gm/dL (12.0-15.0); LYMPHOCYTES 10.6 %; MCH 33.5 pg (26.0-34.0); MCHC 33.5 g/dL (28.0-37.0); MCV 99.9 fL (80.0-100.0); MONOCYTES 5.5 %; MPV 7.5 fl. (7.2-11.1); NUCLEATED RBCS 0 /100WBC; PLATELET COUNT* 257 thou/uL (150-400); POLYS 82.4 %; RBC 4.37 mil/uL (4.20-5.00); RDW-CV 14.1 % (10.5-14.5); WBC 16.2 thou/uL (4.0-11.0)
[2020-11-15 13:57] LABS: POTASSIUM 4.1 mmol/L (3.5-5.1)
[2020-11-15 14:01] LABS: ALBUMIN 3.4 g/dL (3.4-5.0); TOTAL BILIRUBIN 0.5 mg/dL (<0.1-1.0); TOTAL PROTEIN 7.2 g/dL (6.4-8.2)
[2020-11-15 14:42] LABS: URINE BLOOD 3+ (Negative); URINE CLARITY SL CLOUDY; URINE COLOR YELLOW; URINE GLUCOSE-RANDOM NEGATIVE (Negative); URINE KETONES NEGATIVE (Negative); URINE LEUKOCYTES-REFLEX 1+ (Negative); URINE NITRITE-REFLEX NEGATIVE (Negative); URINE PROTEIN 2+ (Negative); URINE SPECIFIC GRAVITY >= 1.030 (1.005-1.030); URINE UROBILINOGEN 0.2 E.U./dl (0.2-1.0)
[2020-11-15 14:43] LABS: ICTOTEST (BILI CONFIRMATORY) Negative (Negative); URINE BILIRUBIN 1+ (Negative)
[2020-11-15 14:50] LABS: SQUAMOUS >10 Many /LPF (0-3)
[2020-11-15 14:51] LABS: BACTERIA-REFLEX >30 Many /HPF (None Seen); CASTS None Seen /LPF (None Seen); MUCUS 0-3 Light strn/LPF (None Seen); URINE RBC >20 Many /HPF (0-2); URINE WBC-REFLEX >25 Many /HPF (0-5)
[2020-11-15 14:52] LABS: CRYSTALS None Seen /LPF (None Seen)
[2020-11-15 20:00] VITALS: BP 131/71
[2020-11-15 21:05] VITALS: BP 131/71
[2020-11-15 21:15] VITALS: BP 138/83
[2020-11-16 04:17] VITALS: BP 125/72
[2020-11-16 05:04] LABS: ABSOLUTE EOSINOPHILS 0.1 thou/uL (0.0-0.7); ABSOLUTE LYMPHOCYTES 1.7 thou/uL (0.8-5.3); ABSOLUTE MONOCYTES 0.5 thou/uL (0.0-1.2); ABSOLUTE NEUTROPHILS 5.5 thou/uL (1.6-8.1); BASOPHILS 0.4 %; EOSINOPHILS 1.3 %; HEMATOCRIT 31.2 % (37.0-47.0); LYMPHOCYTES 21.9 %; MCH 33.9 pg (26.0-34.0); MCHC 34.2 g/dL (28.0-37.0); MCV 99.1 fL (80.0-100.0); MPV 7.3 fl. (7.2-11.1); NUCLEATED RBCS 0 /100WBC; POLYS 70.4 %; RBC 3.14 mil/uL (4.20-5.00); RDW-CV 13.9 % (10.5-14.5); WBC 7.8 thou/uL (4.0-11.0)
[2020-11-16 05:07] LABS: HEMOGLOBIN 10.7 gm/dL (12.0-15.0); PLATELET COUNT* 169 thou/uL (150-400)
[2020-11-16 05:12] LABS: ALBUMIN 2.4 g/dL (3.4-5.0); CALCIUM 8.1 mg/dL (8.5-10.1); CREATININE 0.7 mg/dL (0.6-1.3); POTASSIUM 3.3 mmol/L (3.5-5.1); TOTAL BILIRUBIN 0.3 mg/dL (<0.1-1.0); TOTAL PROTEIN 5.2 g/dL (6.4-8.2)
[2020-11-16 16:00] VITALS: BP 135/78
[2020-11-16 20:00] VITALS: BP 127/86
[2020-11-17 04:35] LABS: ABSOLUTE EOSINOPHILS 0.1 thou/uL (0.0-0.7); ABSOLUTE LYMPHOCYTES 1.5 thou/uL (0.8-5.3); ABSOLUTE MONOCYTES 0.6 thou/uL (0.0-1.2); ABSOLUTE NEUTROPHILS 4.5 thou/uL (1.6-8.1); BASOPHILS 0.3 %; EOSINOPHILS 1.4 %; HEMOGLOBIN 10.7 gm/dL (12.0-15.0); LYMPHOCYTES 22.2 %; MCH 33.6 pg (26.0-34.0); MCHC 33.6 g/dL (28.0-37.0); MCV 99.8 fL (80.0-100.0); MONOCYTES 8.8 %; MPV 7.1 fl. (7.2-11.1); NUCLEATED RBCS 0 /100WBC; PLATELET COUNT* 192 thou/uL (150-400); POLYS 67.3 %; RDW-CV 13.7 % (10.5-14.5); WBC 6.7 thou/uL (4.0-11.0)
[2020-11-17 05:15] LABS: PREALBUMIN 12.9 mg/dL (18.0-35.7)
[2020-11-17 07:54] VITALS: BP 139/86
[2020-11-17 15:05] VITALS: BP 139/86
[2020-11-17 15:23] LABS: ALBUMIN 2.6 g/dL (3.4-5.0); CREATININE 0.6 mg/dL (0.6-1.3); POTASSIUM 3.8 mmol/L (3.5-5.1); TOTAL BILIRUBIN 0.2 mg/dL (<0.1-1.0); TOTAL PROTEIN 6.1 g/dL (6.4-8.2)
[2020-11-17 15:38] VITALS: BP 139/86
== END 2020-11-17 15:22 | disposition home or self-care (01) | DRG 854 ==
LOC: M.ERS 13:09 → M.TBA-ER 15:07 → M.ORTHSURG 21:21
PROVIDERS: Family Medicine; ADMIT Internal Medicine; ATTEND Internal Medicine
PROC: 0TC68ZZ Extirpation of Matter from Right Ureter, Via Natural or Artificial Opening Endoscopic (ICD-10-PCS; principal; 2020-11-15)
PROC: 0T768DZ Dilation of Right Ureter with Intraluminal Device, Via Natural or Artificial Opening Endoscopic (ICD-10-PCS; principal; 2020-11-15)
PROC: BT1D1ZZ Fluoroscopy of Right Kidney, Ureter and Bladder using Low Osmolar Contrast (ICD-10-PCS; principal; 2020-11-15)
DX: A41.9 Sepsis, unspecified organism (principal); N13.6 Pyonephrosis; F17.210 Nicotine dependence, cigarettes, uncomplicated; F12.90 Cannabis use, unspecified, uncomplicated; I10 Essential (primary) hypertension; R74.01 Elevation of levels of liver transaminase levels; Z20.822 Contact with and (suspected) exposure to COVID-19; Z88.6 Allergy status to analgesic agent; Z88.8 Allergy status to other drugs, medicaments and biological substances; Z90.49 Acquired absence of other specified parts of digestive tract; Z87.442 Personal history of urinary calculi; Z79.899 Other long term (current) drug therapy

== ENCOUNTER 2021-02-17 04:19 | Emergency (ER) | payer OTHER ==
[~2021-02-17] VITALS: Ht 162.6 cm; Wt 57.6 kg
[2021-02-17 04:42] LABS: URINE BILIRUBIN NEGATIVE (Negative); URINE BLOOD 3+ (Negative); URINE COLOR YELLOW; URINE GLUCOSE-RANDOM NEGATIVE (Negative); URINE KETONES NEGATIVE (Negative); URINE LEUKOCYTES-REFLEX NEGATIVE (Negative); URINE NITRITE-REFLEX NEGATIVE (Negative); URINE PROTEIN 2+ (Negative); URINE SPECIFIC GRAVITY 1.025 (1.005-1.030); URINE UROBILINOGEN 0.2 E.U./dl (0.2-1.0)
[2021-02-17 04:45] LABS: URINE CLARITY SL CLOUDY
[2021-02-17 04:55] LABS: ABSOLUTE BASOPHILS 0.1 thou/uL (0.0-0.2); ABSOLUTE EOSINOPHILS 0.3 thou/uL (0.0-0.7); ABSOLUTE LYMPHOCYTES 2.3 thou/uL (0.8-5.3); ABSOLUTE MONOCYTES 0.4 thou/uL (0.0-1.2); ABSOLUTE NEUTROPHILS 4.2 thou/uL (1.6-8.1); BASOPHILS 0.7 %; EOSINOPHILS 3.5 %; HEMATOCRIT 37.3 % (37.0-47.0); HEMOGLOBIN 13.1 gm/dL (12.0-15.0); LYMPHOCYTES 32.1 %; MCH 34.3 pg (26.0-34.0); MCHC 35.2 g/dL (28.0-37.0); MCV 97.6 fL (80.0-100.0); MONOCYTES 5.9 %; MPV 7.3 fl. (7.2-11.1); NUCLEATED RBCS 0 /100WBC; PLATELET COUNT* 204 thou/uL (150-400); POLYS 57.8 %; RBC 3.83 mil/uL (4.20-5.00); RDW-CV 13.3 % (10.5-14.5); WBC 7.3 thou/uL (4.0-11.0)
[2021-02-17 05:15] LABS: CALCIUM 8.5 mg/dL (8.5-10.1); CREATININE 0.9 mg/dL (0.6-1.3); POTASSIUM 3.6 mmol/L (3.5-5.1)
[2021-02-17 05:20] LABS: ALBUMIN 3.5 g/dL (3.4-5.0); TOTAL BILIRUBIN 0.3 mg/dL (<0.1-1.0); TOTAL PROTEIN 6.5 g/dL (6.4-8.2)
[2021-02-17 05:57] LABS: BACTERIA-REFLEX >30 Many /HPF (None Seen); CASTS None Seen /LPF (None Seen); CRYSTALS None Seen /LPF (None Seen); MUCUS 4-6 Moderate strn/LPF (None Seen); SQUAMOUS 0-3 Few /LPF (0-3); URINE RBC >20 Many /HPF (0-2); URINE WBC-REFLEX 6-15 Few /HPF (0-5)
[2021-02-17] MEDS ORDERED: FLOMAX0.4 MG PO (07:42)
[2021-02-17] MEDS ORDERED: ZOFRAN ODT4 MG DISSOLVE (07:42)
[2021-02-17] MEDS ORDERED: IBUPROFEN 800800 M1 PO (07:42)
[2021-02-17] MEDS ORDERED: PERCOCET 5-3251 EACH PO (07:42)
[2021-02-17 08:06] VITALS: BP 103/61
== END 2021-02-17 08:07 | disposition home or self-care (01) ==
LOC: M.ERS 04:19
PROVIDERS: Personal Emergency Response Attendant
DX: N20.0 Calculus of kidney (principal); N23 Unspecified renal colic; Z98.51 Tubal ligation status; Z87.442 Personal history of urinary calculi; Z90.49 Acquired absence of other specified parts of digestive tract; Z88.6 Allergy status to analgesic agent; Z88.5 Allergy status to narcotic agent

== ENCOUNTER 2021-02-21 12:27 | Emergency (ER) | payer OTHER ==
[~2021-02-21] VITALS: Ht 162.6 cm; Wt 60.8 kg
[~2021-02-21 12:27] MED LIST changes: +ZOFRAN ODT4 MG DISSOLVE
[2021-02-21 12:57] LABS: ABSOLUTE EOSINOPHILS 0.2 thou/uL (0.0-0.7); ABSOLUTE LYMPHOCYTES 2.5 thou/uL (0.8-5.3); ABSOLUTE MONOCYTES 0.4 thou/uL (0.0-1.2); BASOPHILS 0.6 %; EOSINOPHILS 2.5 %; HEMATOCRIT 37.5 % (37.0-47.0); HEMOGLOBIN 13.3 gm/dL (12.0-15.0); LYMPHOCYTES 31.1 %; MCH 34.7 pg (26.0-34.0); MCHC 35.4 g/dL (28.0-37.0); MCV 97.9 fL (80.0-100.0); MONOCYTES 4.4 %; MPV 7.5 fl. (7.2-11.1); NUCLEATED RBCS 0 /100WBC; PLATELET COUNT* 225 thou/uL (150-400); POLYS 61.4 %; RBC 3.83 mil/uL (4.20-5.00); RDW-CV 13.3 % (10.5-14.5); WBC 8.1 thou/uL (4.0-11.0)
[2021-02-21 13:16] LABS: CALCIUM 8.4 mg/dL (8.5-10.1); CREATININE 0.9 mg/dL (0.6-1.3); POTASSIUM 3.8 mmol/L (3.5-5.1)
[2021-02-21 13:21] LABS: ALBUMIN 3.8 g/dL (3.4-5.0); TOTAL BILIRUBIN 0.2 mg/dL (<0.1-1.0); TOTAL PROTEIN 6.6 g/dL (6.4-8.2)
[2021-02-21 13:31] LABS: URINE BILIRUBIN NEGATIVE (Negative); URINE BLOOD NEGATIVE (Negative); URINE CLARITY CLEAR; URINE COLOR YELLOW; URINE GLUCOSE-RANDOM NEGATIVE (Negative); URINE KETONES NEGATIVE (Negative); URINE LEUKOCYTES-REFLEX TRACE (Negative); URINE NITRITE-REFLEX NEGATIVE (Negative); URINE PROTEIN NEGATIVE (Negative); URINE UROBILINOGEN 0.2 E.U./dl (0.2-1.0)
[2021-02-21 13:39] LABS: BACTERIA-REFLEX 1-9 Few /HPF (None Seen); CASTS None Seen /LPF (None Seen); CRYSTALS None Seen /LPF (None Seen); MUCUS None Seen strn/LPF (None Seen); SQUAMOUS 4-10 Moderate /LPF (0-3); URINE RBC 0-2 Rare /HPF (0-2); URINE WBC-REFLEX 0-5 Rare /HPF (0-5)
[2021-02-21 14:35] VITALS: BP 113/81
== END 2021-02-21 14:36 | disposition home or self-care (01) ==
LOC: M.ERS 12:27
PROVIDERS: Family Medicine
DX: R53.1 Weakness (principal); R50.9 Fever, unspecified; R11.2 Nausea with vomiting, unspecified; R30.0 Dysuria; Z20.822 Contact with and (suspected) exposure to COVID-19; Z88.6 Allergy status to analgesic agent; Z88.5 Allergy status to narcotic agent; Z98.51 Tubal ligation status; Z90.49 Acquired absence of other specified parts of digestive tract; Z87.442 Personal history of urinary calculi